=== PATIENT | male | born 1960 | race Caucasian/White ===

== ENCOUNTER 2019-07-30 18:23 | Inpatient (IN) | payer OTHER ==
[~2019-07-30] VITALS: Ht 182.9 cm; Wt 89.7 kg
[2019-07-30 18:56] LABS: VENOUS BASE EXCESS -4.1 (-2.0-2.0); VENOUS HCO3 19.9 MEQ/L (23.0-27.0); VENOUS O2 SATURATION 97.1 % (60.0-80.0); VENOUS PARTIAL PRESSURE CO2 33.7 mmHg (38.0-50.0); VENOUS PH 7.389 UNITS (7.330-7.430); VENOUS STANDARD HCO3 21.1 MEQ/L; VENOUS TOTAL CO2 20.9 MEQ/L (24.0-28.0)
[2019-07-30 19:03] LABS: BASO % 0.3 % (0.0-1.0); EOS % 0.1 % (0.0-3.0); HEMATOCRIT 44.2 % (42.0-52.0); HEMOGLOBIN 14.4 g/dl (13.5-17.5); LYMPH # 1.2 10^3/uL (1.5-5.0); LYMPH % 13.3 % (24.0-44.0); MEAN CORPUSCULAR HEMOGLOBIN 29.9 pg (27.0-33.0); MEAN CORPUSCULAR HGB CONC 32.6 g/dl (32.0-36.5); MEAN CORPUSCULAR VOLUME 91.7 fl (80.0-96.0); MONO # 0.7 10^3/uL (0.0-0.8); MONO % 7.7 % (0.0-5.0); NEUTROPHILS % 78.3 % (36.0-66.0); PLATELET COUNT, AUTOMATED 177 10^3/uL (150-450); RED BLOOD COUNT 4.82 10^6/uL (4.30-6.10); WHITE BLOOD COUNT 8.9 10^3/uL (4.0-10.0)
[2019-07-30] MEDS: METOPROLOL 5 MG/5 ML VIAL IV SCH ×3 (19:03→20:50)
--- NOTE | 2019-07-30 19:20 | REP ---
CHEST, SINGLE VIEW: Single view of the chest is performed. I have no prior study for comparison. There is cardiomegaly. There may be some mild patchy atelectasis or infiltrate in each lung base. There is blunting of the left costophrenic angle suggesting a small left pleural effusion. Mediastinal silhouette is unremarkable. IMPRESSION: Cardiomegaly. Possible mild bibasilar atelectasis/infiltrate. Possible small left effusion. Electronically Signed by Chidi Oliver MD 08/01/2019 09:08 A
[2019-07-30 19:21] LABS: INR 1.25; PROTHROMBIN TIME 15.4 SECONDS (11.8-14.0)
[2019-07-30 19:37] LABS: ALT/SGPT 85 U/L (12-78); BLOOD UREA NITROGEN 23 MG/DL (7-18); CARBON DIOXIDE LEVEL 21 MEQ/L (21-32); CHLORIDE LEVEL 106 MEQ/L (98-107); CPK CREATINE PHOSPHOKINASE 246 U/L (39-308); GLOMERULAR FILTRATION RATE > 60.0 (>49); GLUCOSE, FASTING 96 MG/DL (70-100); POTASSIUM SERUM 4.5 MEQ/L (3.5-5.1); SODIUM LEVEL 137 MEQ/L (136-145)
[2019-07-30 19:38] LABS: ALBUMIN 3.9 GM/DL (3.2-5.2); BILIRUBIN,DIRECT 0.6 MG/DL (0.0-0.2); BILIRUBIN,TOTAL 1.7 MG/DL (0.2-1.0); MB/CK RELATIVE INDEX 5.69 (< OR =4); NT-PRO BNP 1914 PG/ML (<125); TOTAL PROTEIN 6.7 GM/DL (6.4-8.2); TROPONIN I 0.03 NG/ML (< 0.10)
[2019-07-30] MEDS ORDERED: ISOVUE-370 76% 100ML VIAL (Q9967) As Ordered ONE (19:47)
--- NOTE | 2019-07-30 20:38 | REPVR ---
PROCEDURE INFORMATION: Exam: CT Angiography Chest With Contrast Exam date and time: 07/30/2019 7:51 PM Clinical history: 59 years old, male; Shortness of breath; Additional info: Chest pain, SOB TECHNIQUE: Imaging protocol: Computed tomographic angiography of the chest with intravenous contrast. 3D rendering: MIP reconstructed images were created and reviewed. Radiation optimization: All CT scans at this facility use at least one of these dose optimization techniques: automated exposure control; mA and/or kV adjustment per patient size (includes targeted exams where dose is matched to clinical indication); or iterative reconstruction. Contrast material: ISOVUE 370; Contrast volume: 75 ml; Contrast route: IV; COMPARISON: CR PORTABLE CHEST X-RAY 07/30/2019 6:53 PM FINDINGS: Pulmonary arteries: Normal. No pulmonary emboli. Aorta: Unremarkable. No aortic aneurysm. No aortic dissection. Lungs: Patchy groundglass opacities with some areas of interstitial thickening suggesting mild interstitial edema. No airspace consolidation or masses. Airways are clear. Pleural space: Small bilateral pleural effusions, larger on the right. No pneumothorax. Heart: Mild cardiomegaly with right greater than left cardiac enlargement. Lymph nodes: Unremarkable. No enlarged lymph nodes. Bones/joints: Unremarkable. No acute fracture. Soft tissues: Unremarkable. IMPRESSION: 1. Cardiomegaly with mild pulmonary edema and small bilateral pleural effusions. 2. No pulmonary embolism. Electronically signed by: Javi Calvillo On 07/30/2019 20:38:50 PM
--- NOTE | 2019-07-30 20:39 | REPVR ---
PROCEDURE INFORMATION: Exam: US Duplex Lower Extremity Veins Exam date and time: 07/30/2019 8:15 PM Clinical history: 59 years old, male; Pain; Leg, lower; Bilateral; Additional info: Edema, R/O dvt TECHNIQUE: Imaging protocol: Real-time duplex ultrasound of the Lower Extremities with 2-D love scale, color Doppler flow and spectral waveform analysis with image documentation. Complete exam focused on the bilateral lower extremity veins. COMPARISON: No relevant prior studies available. FINDINGS: Right deep veins: Unremarkable. The common femoral, femoral, proximal profunda femoral and popliteal veins are patent without thrombus. Normal Doppler waveforms. Normal compressibility and/or augmentation response. Right superficial veins: Saphenofemoral junction is patent without thrombus. Left deep veins: Unremarkable. The common femoral, femoral, proximal profunda femoral and popliteal veins are patent without thrombus. Normal Doppler waveforms. Normal compressibility and/or augmentation response. Left superficial veins: Saphenofemoral junction is patent without thrombus. Soft tissues: Unremarkable. IMPRESSION: No acute findings. No evidence of deep vein thrombosis. Electronically signed by: Javi Calvillo On 07/30/2019 20:39:40 PM
[2019-07-31] VITALS (13 sets, daily range): BP systolic 102–140; BP diastolic 70–88
[2019-07-31] MEDS ORDERED: FUROSEMIDE 40 MG TAB PO ONE (01:15)
--- NOTE | 2019-07-31 02:07 | HPEPDOC ---
[facility] [place] Medical History & Physical Date of Admission Jul 30, 2019 Date of Service: Jul 30, 2019 Attending Physician: PITER MON MD History and Physical CHIEF COMPLAINT: Shortness of breath HISTORY OF PRESENT ILLNESS: Jose is a 59-year-old male with past medical history of left lower extremity DVT who presented to the emergency department on the evening of 07/30 with the chief complaint of progressing shortness of breath that has been present for the past week. Patient initially presented to urgent care 1 week ago and was diagnosed with constipation. Patient's shortness of breath progressively worsened over the week and he subsequently returned to urgent care on 07/30. On second visit to urgent care, patient was found to be tachycardic and found to have new onset atrial fibrillation. He was then directed to the emergency department. Patient states that activity of any kind worsens his symptoms. He also is complaining of productive cough with clear sputum, headache running over sagittal suture, and belly fullness. Patient denies any recent illnesses, travel, sick contacts, or change in medications. Patient takes no prescribed medications and takes ecsu-lyf-rripafy multivitamin, fish oil, and glucosamine/chondroitin. Patient is in the process of trying to establish with a primary care physician and has not seen a primary provider in a long time. Patient verbally confirms when asked at time of admission that his CODE STATUS is full code. Patient was accompanied by his and [id number] at time of exam. In the emergency department, patient was given three, 5 mg doses of Lopressor, which brought his pulse from the 160s down to the mid 130s-mid 140s. LFTs, alk phos, and bilirubin were all elevated. BNP was significantly elevated. Electrolytes and CBC were unremarkable. Venous blood gas showed showed signs of a possibly mild metabolic acidosis. Portable chest x-ray showed cardiomegaly with possible mild atelectasis/infiltrate in both lung bases with possible left effusion. CTA of the chest also showed cardiomegaly with mild pulmonary edema and small bilateral pleural effusions. There were no signs of pulmonary embolism. Lower extremity ultrasound was unremarkable for DVT. Respiratory viral panel was negative and 2 blood cultures are pending. Patient was subsequently admitted to PCU under the care of the hospitalist team for rate control and continued telemetry monitoring. PAST MEDICAL HISTORY: History of left lower extremity DVT PAST SURGICAL HISTORY: None SOCIAL HISTORY: Marital status: , and has children Resides: At home with Employment: Patient is a mae Tobacco use: Denies ETOH: Averages about 1-2 beers per week Illicit drug use: Denies IV drug use: Denies FAMILY HISTORY: Mother: Diabetes mellitus Siblings: Myocardial infarction (younger brother; ) ALLERGIES: Please see below. REVIEW OF SYSTEMS: CONSTITUTIONAL: Denies fever, chills, night sweats, unintentional change in weight HEENT: Endorses headache over sagittal suture; denies feeling lightheaded, dizziness, dysphagia, odynophagia CARDIOVASCULAR: Denies chest pain, chest pressure, or palpitations at time of exam - - but did endorse right pectoral and flank, nonradiating, sharp pain early in the day that has since resolved RESPIRATORY: Endorses productive cough with clear sputum; Denies shortness of breath or pleuritic chest pain at time of exam GASTROINTESTINAL: Endorses bilateral belly fullness at the level of umbilicus; denies feeling nauseated, vomiting MUSCULOSKELETAL: Denies muscle or joint pain NEUROLOGICAL: Denies paresthesias ENDOCRINE: Denies heat or cold intolerance HOME MEDICATIONS: No home prescribed medications; takes qemv-[id number]-[id number] fish oil, multivitamin and glucosamine/chondroitin PHYSICAL EXAMINATION: VITAL SIGNS: Please see below GENERAL APPEARANCE: Jose is a pleasant and cooperative man who was resting in b ed at time of exam. He was receiving 1 L supplemental oxygen via nasal cannula and did not appear to be in any respiratory distress. He was speaking in full sentences. He was alert and oriented 3 and responding appropriately to questions and commands. HEENT: Normocephalic, atraumatic. Anicteric sclera. Pupils were equal, round, reactive to light and accommodation. Extraocular motion was intact. It was no pharyngeal erythema or exudate. Trachea was midline. Neck was supple. There was no palpable cervical or supraclavicular lymphadenopathy. CARDIOVASCULAR: Tachycardic with irregularly irregular rhythm. No rubs, gallops, or murmurs appreciated. Palpable bilateral radial and posterior tibial pulses. Adequate capillary refill. No JVD appreciated. LUNGS: Moderate crackles heard with respirations bilaterally. Note eat to a egophony appreciated. No tympany to percussion of bilateral lung borden. Adequate respiratory effort with symmetric chest expansion. There are no visible signs of accessory muscle use or retractions on respiration. Patient was receiving 1 L of supplemental oxygen via nasal cannula. ABDOMEN: Tenderness and pain to palpation of right upper quadrant and left upper quadrant. There was some left upper and mid abdominal quadrant belly fullness appreciated. Bowel sounds were present. There was no guarding or rigidity. No palpable masses or hepatosplenomegaly appreciated. MUSCULOSKELETAL: 5 out of 5 muscle strength testing of upper extremities and lower sternum is bilaterally EXTREMITIES: Bilateral lower extremity pitting edema. Left pedal edema. Palpable radial and posterior tibial pulses bilaterally. NEUROLOGICAL: Sensation to light touch intact of upper extremities and lower extremities bilaterally. Patient was awake, alert and oriented 3. He maintained good eye contact and respond appropriately to questions commands. PSYCHIATRIC: Appropriate mood, appropriate affect LABORATORY DATA: See below. IMAGIN/9, Portable chest x-ray Cardiomegaly. Possible mild bibasilar atelectasis/infiltrate. Possible small left effusion. 07/30, CTA of the chest Cardiomegaly with mild pulmonary edema and small bilateral pleural effusions. No pulmonary embolism. 07/30, vascular duplex lower extremity ultrasound No acute findings. No evidence of deep vein thrombosis. MICROBIOLOGY: Please see below. ASSESSMENT & PLAN: This is a 59-year-old male with only pertinent past medical history of previous left lower extremity DVT who presented to the emergency department with progressing shortness of breath for one week and was found to have new onset atrial fibrillation with rapid ventricular response. He was given three doses of Lopressor in the emergency department and found to have mild pulmonary edema on imaging. He was admitted to PCU under care of the hospitalist team for further medical management and rate control, as well as continued telemetry monitoring. #New onset atrial fibrillation with rapid ventricular response -Patient has been complaining of shortness of breath for a week, but did not endorse any lightheadedness, dizziness, syncope, chest pain, chest pressure, or palpitations at time of admission exam. -Patient received three, 5 mg Lopressor doses in the emergency department, which brought rate from the 160s down to the mid 130s to mid 140s. -Cardizem po 30mg q6h scheduled administration as patient remains hemodynamically stable. -Patient received one time IV Cardizem dose after arriving on the floor with heart rates staying in the 130s. -Heart rate controlled after IV Cardizem dose -Lovenox 90mg sc q12h ordered -TTE ordered to evaluate for associated cardiac conditions (cardiomyopathy, left atrial dilation, valvular heart disease) #Mild pulmonary edema and small bilateral pleural effusions on CTA chest -Patient had bilateral crackles on respiratory auscultation with elevated BNP -Signs of interstitial heart failure with mild pulmonary edema and small bilateral pleural effusions on imaging. -Patient given a dose of 40 mg Lasix -monitor I's & O's -Echocardiogram ordered for 07/31 #Direct hyperbilirubinemia -Patient had pain and tenderness to palpation of right and left upper abdominal quadrants. Patient was not jaundiced. -Continue to follow on repeat labs #Elevated alkaline phosphatase #DVT prophylaxis: 90 mg Lovenox sc q12h I saw and evaluated the patient, discussed with resident, agree with resident's findings and plan as documented in the resident's note Vital Signs Vital Signs Date Time Temp Pulse Resp B/P (MAP) Pulse Ox O2 Delivery O2 Flow Rate FiO2 07/31/19 00:30 137 156/99 (118) 99 07/30/19 20:21 20 Nasal Cannula 2.0 07/30/19 18:36 97.4 Laboratory Data Labs 24H Laboratory Tests 2 07/30/19 18:48: Immature Granulocyte % (Auto) 0.3, White Blood Count 8.9, Red Blood Count 4.82, Hemoglobin 14.4, Hematocrit 44.2, Mean Corpuscular Volume 91.7, Mean Corpuscular Hemoglobin 29.9, Mean Corpuscular Hemoglobin Concent 32.6, Red Cell Distribution Width 13.3, Platelet Count 177, Neutrophils (%) (Auto) 78.3H, Lymphocytes (%) (Auto) 13.3L, Monocytes (%) (Auto) 7.7H, Eosinophils (%) (Auto) 0.1, Basophils (%) (Auto) 0.3, Neutrophils # (Auto) 7.0, Lymphocytes # (Auto) 1.2L, Monocytes # (Auto) 0.7, Eosinophils # (Auto) 0.0, Basophils # (Auto) 0.0, Nucleated Red Blood Cells % (auto) 0.0, Prothrombin Time 15.4H, Prothromb Time International Ratio 1.25, Blood Gas Bicarbonate Standard 21.1, Venous Blood pH 7.389, Venous Blood Partial Pressure CO2 33.7L, Venous Blood Partial Pressure O2 91.0H, Venous Blood Total Carbon Dioxide 20.9L, Venous Blood HCO3 19.9L, Venous Blood Oxygen Saturation 97.1H, Venous Blood Base Excess -4.1L, Anion Gap 10, Glomerular Filtration Rate > 60.0, Calcium Level 9.0, Aspartate Amino Transf (AST/SGOT) 48H, Alanine Aminotransferase (ALT/SGPT) 85H, Alkaline Phosphatase 142H, Total Bilirubin 1.7H, Direct Bilirubin 0.6H, Total Creatine Kinase 246, Creatine Kinase MB 14.0H, Creatine Kinase MB Relative Index 5.69H, Troponin I 0.03, RH-Zfu-B-Type Natriuretic Peptide 1914H, Total Protein 6.7, Albumin 3.9, Albumin/Globulin Ratio 1.39, Thyroid Stimulating Hormone (TSH) 1.280 07/31/19 00:46: Activated Partial Thromboplast Time 31.2, Free Thyroxine 1.27 CBC/BMP Laboratory Tests 07/30/19 18:48 Red Blood Count 4.82, Mean Corpuscular Volume 91.7, Mean Corpuscular Hemoglobin 29.9, Mean Corpuscular Hemoglobin Concent 32.6, Red Cell Distribution Width 13.3, Neutrophils (%) (Auto) 78.3 H, Lymphocytes (%) (Auto) 13.3 L, Monocytes (%) (Auto) 7.7 H, Eosinophils (%) (Auto) 0.1, Basophils (%) (Auto) 0.3, Neutrophils # (Auto) 7.0, Lymphocytes # (Auto) 1.2 L, Monocytes # (Auto) 0.7, Eosinophils # (Auto) 0.0, Basophils # (Auto) 0.0 Microbiology Microbiology 07/30/19 Blood Culture, Received Pending 07/30/19 Respiratory Virus Panel (PCR) (JEFF) - Final, Complete 07/30/19 Blood Culture, Received Pending Home Medications No Active Prescriptions or Reported Meds Allergies Coded Allergies: No Known Drug Allergies (Verified Allergy, Unknown, 07/30/19) A-FIB/CHADSVASC A-FIB History Current/History of A-Fib/PAF?: Yes Current PO Anticoag Therapy: No (patient receiving subcutaneous Lovenox) DEJA HARLEY PGY-1 Jul 31, 2019 02:07 PITER MON MD Jul 31, 2019 18:40
[2019-07-31] MEDS: ENOXAPARIN 100MG/1ML SYRINGE (J1650) SC SCH ×3 (02:10→23:40)
[2019-07-31] MEDS ORDERED: SLF 3 ML SYR IV PRN (02:30)
[2019-07-31 05:29] LABS: HEMOGLOBIN 14.3 g/dl (13.5-17.5); MEAN CORPUSCULAR HEMOGLOBIN 30.2 pg (27.0-33.0); MEAN CORPUSCULAR HGB CONC 32.5 g/dl (32.0-36.5); MEAN CORPUSCULAR VOLUME 92.8 fl (80.0-96.0); PLATELET COUNT, AUTOMATED 162 10^3/uL (150-450); RED BLOOD COUNT 4.74 10^6/uL (4.30-6.10); WHITE BLOOD COUNT 8.3 10^3/uL (4.0-10.0)
[2019-07-31] MEDS: SLF 3 ML SYR IV SCH ×3 (05:46→20:12)
[2019-07-31 05:56] LABS: ALBUMIN 3.4 GM/DL (3.2-5.2); ALT/SGPT 71 U/L (12-78); BILIRUBIN,TOTAL 2.1 MG/DL (0.2-1.0); BLOOD UREA NITROGEN 21 MG/DL (7-18); CALCIUM LEVEL 8.5 MG/DL (8.8-10.2); CARBON DIOXIDE LEVEL 23 MEQ/L (21-32); CHLORIDE LEVEL 106 MEQ/L (98-107); CREATININE FOR GFR 0.81 MG/DL (0.70-1.30); GLOMERULAR FILTRATION RATE > 60.0 (>49); GLUCOSE, FASTING 100 MG/DL (70-100); MAGNESIUM LEVEL 1.8 MG/DL (1.8-2.4); PHOSPHORUS LEVEL 3.2 MG/DL (2.5-4.9); POTASSIUM SERUM 3.8 MEQ/L (3.5-5.1); SODIUM LEVEL 137 MEQ/L (136-145); TOTAL PROTEIN 6.2 GM/DL (6.4-8.2)
--- NOTE | 2019-07-31 10:52 | ECGEPIP ---
[facility] - ED Test Date: 2019-07-30 Pat Name: MARCELA MARX Department: Room: [place] [address] Gender: Male Survey Engineer: yonis : 1960 Requested By: Gwendolyn Talamantes Order Number: [id number] Reading MD: Gwendolyn Talamantes Measurements Intervals [place] Rate: 160 P: MO: 0 QRS: -3 QRSD: 100 T: 29 QT: 294 QTc: 480 Interpretive Statements ATRIAL FIBRILLATION WITH RAPID VENTRICULAR RESPONSE ABNORMAL RHYTHM ECG NSTTW abnormalities NO PRIOR Electronically Signed on 07-31-2019 10:52:32 EDT by Gwendolyn Talamantes
[2019-07-31] MEDS: METOPROLOL TART 25 MG TABLET PO SCH ×2 (12:03→20:11)
[2019-07-31] MEDS: FUROSEMIDE 40 MG/4 ML VIAL (J1940) IV SCH ×2 (12:04→17:48)
[2019-07-31] MEDS: LISINOPRIL 10 MG TAB PO SCH (12:04)
[2019-07-31] MEDS ORDERED: diltiaZEM 125 MG in NS 100 ML IV SCH ×3 (14:30→19:45)
[2019-07-31] MEDS: diltiaZEM 125 MG in NS 100 ML IV SCH (18:58)
--- NOTE | 2019-07-31 20:11 | IPNPDOC ---
Text Note Date of Service The patient was seen on 07/31/19. NOTE SUBJECTIVE: Mr. Rincon was admitted for new onset atrial fibrillation with rapid ventricular response. He has had difficulty with rate control over the course of the day. Patient has also exhibited elements of congestive heart failure; he reports having had significant lower extremity edema and at times worsening activity tolerance. OBJECTIVE: Please see vital signs below Physical exam: HENT: Neck is supple with no adenopathy or thyromegaly, oral mucosa is moist. Cardiovascular exam shows an accelerated irregular rate and rhythm with a normal S1 and S2 and no appreciable murmur or bruit. Respiratory: Patient has diminished breath sounds to the left base. He has rare rales Abdomen: Soft, nontender, nondistended, bowel tones present. Extremities: Patient does Exhibit 1-2+ pitting edema to the feet and legs with mild tenderness to palpation, pedal pulses are otherwise palpable. Neuro: No focal neuromotor or sensory deficit ASSESSMENT/PLAN: 1. Atrial fibrillation with rapid ventricular response. This appears to be of new onset. Patient had brief response to IV Cardizem. He is on minimal response to oral beta collette and poor response to oral Cardizem. Patient is being transitioned back to IV Cardizem drip. If he does not respond to this we may need to put him on amiodarone for rate control. The patient is on anticoagulation with treatment dose Lovenox for now. We are also awaiting echocardiogram results. 2. Possible congestive heart failure. Patient reports having had worsening lower extremity edema and episodes of activity intolerance. Concern is raised for onset of congestive heart failure as well. Chest x-ray shows cardiomegaly and small left pleural effusion. Patient has been placed on empiric therapy inclusive of beta collette, lisinopril and diuretic. Echocardiogram results will determine further management. VS,Fishbone, I+O VS, Fishbone, I+O Laboratory Tests 07/31/19 04:52 Red Blood Count 4.74, Mean Corpuscular Volume 92.8, Mean Corpuscular Hemoglobin 30.2, Mean Corpuscular Hemoglobin Concent 32.5, Red Cell Distribution Width 13.5, Calcium Level 8.5 L, Phosphorus Level 3.2, Aspartate Amino Transf (AST/SGOT) 50 H, Alanine Aminotransferase (ALT/SGPT) 71, Alkaline Phosphatase 111, Total Bilirubin 2.1 H, Total Protein 6.2 L, Albumin 3.4 Vital Signs Date Time Temp Pulse Resp B/P (MAP) Pulse Ox O2 Delivery O2 Flow Rate FiO2 07/31/19 18:58 148 118/72 (87) 07/31/19 17:48 95 07/31/19 16:00 98.5 18 2.0 07/30/19 20:21 Nasal Cannula I&O- Last 24 Hours up to 6 AM 07/31/19 06:00 Intake Total 355 ml Output Total 1700 ml Balance -1345 ml HUNTER AMAYA MD Jul 31, 2019 20:11
[2019-08-01] VITALS (14 sets, daily range): BP systolic 98–123; BP diastolic 60–83
[2019-08-01] MEDS: SLF 3 ML SYR IV SCH ×3 (04:58→21:18)
[2019-08-01] MEDS: diltiaZEM 125 MG in NS 100 ML IV SCH ×2 (05:04→21:17)
[2019-08-01 05:23] LABS: ALBUMIN 3.3 GM/DL (3.2-5.2); ALT/SGPT 62 U/L (12-78); BILIRUBIN,TOTAL 1.1 MG/DL (0.2-1.0); BLOOD UREA NITROGEN 24 MG/DL (7-18); CALCIUM LEVEL 8.4 MG/DL (8.8-10.2); CARBON DIOXIDE LEVEL 30 MEQ/L (21-32); CHLORIDE LEVEL 106 MEQ/L (98-107); CREATININE FOR GFR 1.03 MG/DL (0.70-1.30); GLOMERULAR FILTRATION RATE > 60.0 (>49); GLUCOSE, FASTING 93 MG/DL (70-100); POTASSIUM SERUM 3.7 MEQ/L (3.5-5.1); SODIUM LEVEL 143 MEQ/L (136-145)
--- NOTE | 2019-08-01 07:15 | ECHO ---
DATE OF STUDY: 07/31/2019 REFERRING PHYSICIAN: Dr. Caputo INDICATION: Cardiac dysrhythmia, congestive heart failure. HEIGHT: 183 cm. WEIGHT: 96 kg. DIMENSIONS: IVS: 1.3 LV: 4.7 LVPW: 1.2 LA: 4.8 Aorta: 3.5 IVC: 3.2 FINDINGS: The study is of good technical quality. The patient is in atrial fibrillation with predominantly rapid ventricular response. Left ventricle is of normal size. There is severe global hypokinesis, I estimate left ventricle ejection fraction (LVEF) around 20-25%. Mild left ventricular hypertrophy (LVH) is noted. Right ventricle is dilated and hypokinetic. Both atria are severely enlarged. All four cardiac valves appear reasonably normal. No pericardial effusion is noted. Inferior vena cava is markedly dilated and has no appreciable collapse with respiration indicative of high central venous pressure. Aortic root is normal. Aortic arch and abdominal aorta also appear grossly normal. Doppler interrogation of aortic valve reveals no stenosis or insufficiency. There is approximately moderate mitral insufficiency with central MR jet indicative likely of functional mitral insufficiency due to underlying left ventricular systolic dysfunction. There is mild tricuspid insufficiency. Calculated pulmonary artery pressure is at minimum around 40 mmHg corresponding to moderate pulmonary hypertension. Trace pulmonic insufficiency is seen. Evaluation of diastolic function is inconclusive due to underlying atrial fibrillation. CONCLUSIONS: 1. Study is of good technical quality. 2. Normal LV size with severe global hypokinesis and estimated EF around 20-25%. 3. Dilated hypokinetic right ventricle. 4. Severe biatrial enlargement. 5. Approximately moderate mitral insufficiency likely secondary to LV dysfunction. 6. Very high central venous pressure. 7. At least moderate pulmonary hypertension. COMMENT: Subacute bacterial endocarditis (SBE) prophylaxis is not recommended. 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
[2019-08-01] MEDS: FUROSEMIDE 40 MG/4 ML VIAL (J1940) IV SCH ×2 (10:23→17:00)
[2019-08-01] MEDS: LISINOPRIL 10 MG TAB PO SCH (10:23)
[2019-08-01] MEDS: METOPROLOL TART 25 MG TABLET PO SCH (10:23)
[2019-08-01] MEDS: ENOXAPARIN 100MG/1ML SYRINGE (J1650) SC SCH ×2 (12:27→23:33)
--- NOTE | 2019-08-01 16:08 | IPNPDOC ---
Text Note Date of Service The patient was seen on 08/01/19. NOTE SUBJECTIVE: Mr. Rinocn continues to feel better daily. He notes improved breathing and steadily decreasing lower extremity edema. He otherwise does not have any chest pain. Patient was admitted with atrial fibrillation with rapid ventricular response with additional concern of congestive heart failure. OBJECTIVE: Please see vital signs below--patient had had difficulty overnight with rate control and so was placed on a Cardizem drip Physical exam: HENT: Neck is supple with no adenopathy or thyromegaly, oral mucosa is moist. Cardiovascular: accelerated irregular rate and rhythm has improved with being on a Cardizem drip Respiratory: Patient has diminished breath sounds to the left base. He has rare rales Abdomen: Soft, nontender, nondistended, bowel tones present. Extremities: Patient does exhibit 1-2+ pitting edema to the feet and legs with mild tenderness to palpation, pedal pulses are otherwise palpable. Neuro: No focal neuromotor or sensory deficit ASSESSMENT/PLAN: 1. Atrial fibrillation with rapid ventricular response. This is of new onset. Patient had been most responsive to IV Cardizem and so was placed on a drip overnight. Ideally would like to transition the patient over to oral agent for rate control. We are attempting to transition him to beta collette in the form of metoprolol. We will need to perhaps tolerate a lower blood pressu re range for this. Additionally, the patient is on anticoagulation with Lovenox, but will need to transition to an oral agent as well. 2. Acute systolic congestive heart failure. The patient had had worsening lower extremity edema and episodes of activity intolerance. Echocardiogram shows ejection fraction of 20-25%. It also notes biatrial enlargement and pulmonary arterial pressures of 40 mmHg. Patient had already been placed on an initial treatment regimen inclusive of beta collette, LIZZETTE inhibitor and diuretic. This regimen will need to be optimized once the patient's heart rate is controlled. Other eventual interventions may include stress testing of some type and discussion of possible AICD placement. We will defer to the cardiology service on those issues; we appreciate their assistance and input. Steve BUSTAMANTE, I+O VS, Steve, I+O Laboratory Tests 08/01/19 04:48 Calcium Level 8.4 L, Aspartate Amino Transf (AST/SGOT) 30, Alanine Amino transferase (ALT/SGPT) 62, Alkaline Phosphatase 120 H, Total Bilirubin 1.1 H, Total Protein 6.0 L, Albumin 3.3 Vital Signs Date Time Temp Pulse Resp B/P (MAP) Pulse Ox O2 Delivery O2 Flow Rate FiO2 08/01/19 15:00 105 106/76 (86) 08/01/19 12:00 98.3 18 94 07/31/19 16:00 2.0 07/30/19 20:21 Nasal Cannula I&O- Last 24 Hours up to 6 AM 08/01/19 06:00 Intake Total 1620 ml Output Total 3525 ml Balance -1905 ml HUNTER AMAYA MD Aug 01, 2019 16:08
[2019-08-01] MEDS: DIGOXIN INJ 0.5 MG/2 ML AMP (J1160) IV SCH (19:52)
[2019-08-01] MEDS: METOPROLOL TART 50 MG TAB PO SCH (21:18)
[2019-08-02] VITALS: BP 122/60
[2019-08-02] MEDS: DIGOXIN INJ 0.5 MG/2 ML AMP (J1160) IV SCH ×3 (01:28→12:28)
[2019-08-02 04:00] VITALS: BP 120/54
[2019-08-02] MEDS: ACETAMINOPHEN TAB 650MG DOSE (2X325MG) PO PRN ×2 (04:49→15:00)
[2019-08-02] MEDS: SLF 3 ML SYR IV SCH ×3 (05:21→21:37)
[2019-08-02 06:05] LABS: BLOOD UREA NITROGEN 19 MG/DL (7-18); CALCIUM LEVEL 8.7 MG/DL (8.8-10.2); CARBON DIOXIDE LEVEL 27 MEQ/L (21-32); CHLORIDE LEVEL 103 MEQ/L (98-107); CREATININE FOR GFR 0.81 MG/DL (0.70-1.30); GLOMERULAR FILTRATION RATE > 60.0 (>49); GLUCOSE, FASTING 91 MG/DL (70-100); SODIUM LEVEL 137 MEQ/L (136-145)
[2019-08-02 08:00] VITALS: BP 138/74
--- NOTE | 2019-08-02 08:23 | REPVR ---
PROCEDURE INFORMATION: Exam: US Duplex Left Lower Extremity Veins, Limited Exam date and time: 08/02/2019 7:09 AM Clinical history: 59 years old, male; Pain; Leg, lower; Left; Additional info: Acutely swollen lt knee w/ h/o lle dvt 15 yr ago TECHNIQUE: Imaging protocol: Real-time Duplex ultrasound of the Left Lower Extremity with 2-D love scale, color Doppler flow and spectral waveform analysis with image documentation. Limited exam focused on the left lower extremity veins. COMPARISON: US PV-Ruperto 07/30/2019 8:06 PM FINDINGS: Left deep veins: Unremarkable. The common femoral, femoral, proximal profunda femoral, popliteal and posterior tibial veins are patent without thrombus. Normal Doppler waveforms. Normal compressibility and/or augmentation response. Left superficial veins: Unremarkable. Saphenofemoral junction is patent without thrombus. Soft tissues: Unremarkable. IMPRESSION: No acute findings. No evidence of deep vein thrombosis. Electronically signed by: Finn Panda On 08/02/2019 08:23:26 AM
--- NOTE | 2019-08-02 08:27 | CR ---
DATE OF CONSULTATION: 08/01/2019 REFERRING PROVIDER: Ruby Rhodes MD REASON FOR THE CONSULTATION: Atrial fibrillation, heart failure. A 59-year-old male with no history of hypertension, diabetes mellitus, valvular heart disease, cardiomyopathy, or coronary artery disease came to the hospital, transferred directly by emergency medical services (EMS) from one of the urgent care centers because he was found to be tachycardiac, in atrial fibrillation with a rapid ventricular rate. In the emergency room, he was found to have findings consistent with congestive heart failure and admitted for further management and monitoring. He had deep venous thrombosis (DVT) of his lower extremity because of edema, and it was negative. Respiratory viral also was negative, and blood pressure was done. A CT of the chest was done and showed cardiomegaly but no pulmonary embolism. There were manifestation of heart failure and pleural effusion. His pro-BNP was elevated, as well as his liver function tests (LFTs) on further workup. An echocardiogram revealed a left ventricular ejection fraction (LVEF) estimated at 20% to 25%. He had been on intravenous (IV) Cardizem, by mouth beta collette, and his atrial fibrillation is still uncontrolled. Cardiology consult was called. When I saw Mr. Jose Rincon this evening, he was sitting up in his bed in akinesis at rest, and his as well as his son and his future [id number] were at bedside. He stated he feels better, and he feels improved significantly as far as his cough. It seemed that he started getting sick since the spring with shortness of breath with activities on and off with rest. He also has described intermittent fluttering in his chest on and off, and he thought that was related to anxiety. He has no chest pain. It does not seem that he was having any orthopnea or paroxysmal nocturnal dyspnea (PND). He has no focal manifestation. On his first trip to a local urgent care center, he was given a treatment for constipation because he was complaining of bloating, but as mentioned above, when he came back because he was not getting better, he was found to be in atrial fibrillation with a rapid ventricular rate and was transferred to the emergency room (ER) by EMS. As mentioned above, he denies any prior history of hypertension, hyperlipidemia, diabetes mellitus, significant valvular heart disease, prior history of cardiomyopathy, coronary disease, cerebrovascular accident (CVA)/transient ischemic attack (TIA). He works in construction and years ago, his working situation was he has to mobilize his lower extremities, he was diagnosed with a DVT and was on Coumadin for about 2-3 months, then discontinued. Since then, there has not been any recurrence. PAST SURGICAL HISTORY: Unremarkable. FAMILY HISTORY: Is positive for heart disease. He has a brother who from a coronary event in his 50s. SOCIAL HISTORY: The patient lives with his and very active and has not been sick for a long time since that DVT involving his left lower extremity. He is still working in construction. He does not smoke or abuse alcohol. There is no history of illicit drugs. ALLERGIES: No known drug allergies. The patient is a FULL CODE. CURRENT MEDICATIONS: - lisinopril 5 mg by mouth daily - metoprolol tartrate 50 mg by mouth twice a day - diltiazem IV 5 mg/h - Lasix 40 mg IV twice a day - Lovenox 90 mg every 12 hours On physical examination, the patient is alert and oriented, in akinesis at rest, and his vital signs when I saw him revealed a blood pressure of 110/70 with a pulse of 102, respiration 18, and his maximum temperature was 98.4 degrees Fahrenheit with an oxygen saturation of 96% on room air. He has a negative fluid balance of 1.4 liters so far today and yesterday, 07/31/2019, it was 2.9 liters. His weight on admission was 96.2 kg and today 93.8 kg. Examination of the head is normocephalic, atraumatic. Neck is supple with extended jugular. Lungs: Revealed crackles at the bases. There is some component of dry crackles also noted. The heart examination revealed irregular heart sounds without gallops. The point of maximal impulse (PMI) is displaced inferiorly and laterally. There is no rub. There is a systolic murmur grade 2/6 at the lower left sternal border to the axilla. Abdomen is unremarkable. Soft. Bowel sounds are active. Extremities reveal +1 bilateral lower leg and local edema. Neurological examination: Grossly is negative for focal deficit. LABORATORIES: Complete blood count (CBC) done today revealed WBC of 8.3, hemoglobin 14.3, hematocrit 44.0, and platelets 162,000. Basic metabolic profile (BMP) done today revealed a sodium of 143, potassium 3.7, chloride 106, CO2 30, BUN 24, creatinine 1.03, GFR more than 60, fasting glucose 93, calcium 8.4. BMP done today revealed a total bilirubin of 1.1 AST 30, ALT 62, alkaline phosphatase 120, total protein 6.0, albumin 3.3. On admission, liver enzymes revealed a total bilirubin of 1.7, direct bilirubin 0.6, AST 48, ALT 85, alkaline phosphatase 142, total protein 6.7, albumin 3.9. Serum pro-BNP on admission was 1914. Serum troponin was 0.03. PT on admission was 15.4 with an INR of 1.25. Chest x-ray on admission 07/30/2019 revealed cardiomegaly and possible mild bibasilar atelectasis/infiltrate and small left pleural effusion. Doppler of the lower extremities revealed no evidence of DVT. CT of the chest on admission 07/30/2019 revealed cardiomegaly with mild pulmonary edema and small bilateral pleural effusion. No pulmonary embolism. Electrocardiogram (EKG) in the ER on admission 07/30/2019 revealed atrial fibrillation at 160 beats per minute and nonspecific ST-T abnormalities, right ventricular conduction delay. Echocardiogram done on 07/31/2019 revealed an LVEF estimated at 25% with severe global hypokinesis, dilated hypokinetic right ventricle, severe biatrial enlargement, moderate mitral regurgitation, and at least moderate pulmonary hypertension. There were findings consistent with elevated central venous pressure. IMPRESSION: 1. Atrial fibrillation, newly diagnosed and still uncontrolled ventricular rate, but this has improved significantly. 2. Cardiomyopathy, severe and also newly diagnosed with acute decompensated heart failure. 3. Valvular heart disease involving the mitral valve and probably related to his underlying cardiomyopathy; it was reported as moderate. 4. Elevated blood pressure, probably related to underlying and prior undiagnosed hypertension. 5. Abnormal liver function tests, improved and most likely related to congestive cardiomyopathy. The case was discussed this morning with the patient's hospitalist, and the plan is to taper off the Cardizem and increase his beta collette. We are decreasing his lisinopril to prevent hypotension. This afternoon when I saw him, his heart rate was still not quite under control, and he will be loaded with digoxin. I have discussed with him, as well as his and his son, about his diagnosis, and I have recommended a cardiac catheterization for further evaluation; he is in agreement. Will try to arrange that for him for this coming Sunday. If he is discharged from this hospital to so home, he will need a LifeVest for primary prevention of sudden cardiac . If he goes to [facility], he can be seen by , then further recommendation will be given. In the meantime, will continue with current management with beta collette, digoxin, angiotensin-converting enzyme (LIZZETTE) inhibitor; and if his blood pressure allows it, he will be started on spirolactone. Will continue with the diuretics. Will monitor his BUN, creatinine, and serum potassium because he will need a cardiac catheterization. It was a pleasure to participate in the care of Mr. Jose Rincon for his underlying cardiac condition. I will continue to monitor him along with you over the weekend. I will arrange his transfer for the cardiac catheterization for him. Please do not hesitate to call if any questions.
[2019-08-02] MEDS: FUROSEMIDE 40 MG/4 ML VIAL (J1940) IV SCH ×2 (09:24→17:24)
[2019-08-02] MEDS: METOPROLOL TART 50 MG TAB PO SCH ×3 (09:24→21:36)
[2019-08-02] MEDS: LISINOPRIL 5 MG TAB PO SCH (09:25)
--- NOTE | 2019-08-02 09:38 | REP ---
REASON: Pain and swelling. PRIORS: None. There is tricompartmental marginal osteophytosis. Subtle calcifications are seen both medial and lateral compartments. There is advanced patellofemoral joint space narrowing. There is lateral subluxation of the patella. There is no evidence of an acute fracture. IMPRESSION: Chronic changes as described above. Electronically Signed by Fidel Arreola DO 08/02/2019 09:44 A
[2019-08-02 10:14] LABS: C REACTIVE PROTEIN QUANTITATIV 0.53 MG/DL (0.00-0.30)
[2019-08-02] MEDS ORDERED: AMIODARONE HCL 150 MG in IV 1 EA IV STA (10:16)
[2019-08-02 12:00] VITALS: BP 122/76
[2019-08-02] MEDS: ENOXAPARIN 100MG/1ML SYRINGE (J1650) SC SCH ×2 (12:05→23:36)
[2019-08-02 13:07] LABS: URIC ACID 9.2 MG/DL (3.5-7.2)
[2019-08-02] MEDS: DOCUSATE SODIUM 100 MG CAP PO SCH ×2 (15:09→21:35)
[2019-08-02] MEDS: SENNA 8.6 MG TAB (SENOKOT) PO SCH ×2 (15:09→21:35)
[2019-08-02 16:00] VITALS: BP 128/74
[2019-08-02] MEDS ORDERED: oxyCODONE 5MG TAB PO PRN (17:45)
--- NOTE | 2019-08-02 17:50 | IPNPDOC ---
Text Note Date of Service The patient was seen on 08/02/19. NOTE SUBJECTIVE: Patient continues not to have chest pain and not much shortness of breath. Patient is admitted with atrial fibrillation with rapid ventricular response, new onset. He also has new finding of fairly significant acute on chronic systolic congestive heart failure. OBJECTIVE: Please see vital signs below Physical exam: HENT: Neck is supple with no adenopathy or thyromegaly, oral mucosa is moist. Cardiovascular: accelerated irregular rate and rhythm Respiratory: Patient has diminished breath sounds to the left base. He has rare rales Abdomen: Soft, nontender, nondistended, bowel tones present. Extremities: Patient does exhibit 1+ pitting edema to the feet and legs with mild tenderness to palpation, pedal pulses are otherwise palpable, He has now developed acute swelling to the left knee. There is no remarkable erythema, but the site is tender with ballotable fluid Neuro: No focal neuromotor or sensory deficit ASSESSMENT/PLAN: 1. Atrial fibrillation with rapid ventricular response. This is of new onset. Patient had been most responsive to IV Cardizem and so was placed on a drip overnight. Ideally would like to transition the patient over to oral agent/agents for rate control. We are attempting to transition him to beta collette in the form of metoprolol. We will need to perhaps tolerate a lower blood pressure range for this. Digoxin has been added with mild improvement in rate control and now amiodarone has been added as well. We appreciate the assistance of the cardiology service. Additionally, the patient is on anticoagulation with Lovenox, but will need to transition to an oral agent as well. 2. Acute systolic congestive heart failure. The patient had had worsening lower extremity edema and episodes of activity intolerance. Echocardiogram shows ejection fraction of 20-25%. It also notes biatrial enlargement and pulmonary arterial pressures of 40 mmHg. Patient had already been placed on an initial treatment regimen inclusive of beta collette, LIZZETTE inhibitor and diuretic. This regimen will need to be optimized once the pa tient's heart rate is controlled. Other eventual interventions may include stress testing of some type, coronary angiogram, LifeVest and discussion of possible AICD placement. We will defer to the cardiology service on those issues; we appreciate their assistance and input. 3. Left knee joint. The patient has developed acute swelling and pain to his left knee. There is no erythema or induration. The patient has a large effusion with ballotable fluid. He has not had fever and does not have leukocytosis Inflammatory indicators are remarkably negative. Sedimentation rate is 3. Patient does have elevated uric acid of 9, but this is not diagnostic. Plans are to contact the orthopedic service for arthrocentesis. VS,Fishbone, I+O VS, Fishbone, I+O Laboratory Tests 08/02/19 05:18 Calcium Level 8.7 L Vital Signs Date Time Temp Pulse Resp B/P (MAP) Pulse Ox O2 Delivery O2 Flow Rate FiO2 08/02/19 16:00 99.8 98 18 128/74 (92) 98 07/31/19 16:00 2.0 07/30/19 20:21 Nasal Cannula I&O- Last 24 Hours up to 6 AM 08/02/19 06:00 Intake Total 2567.5 ml Output Total 3700 ml Balance -1132.5 ml HUNTER AMAYA MD Aug 02, 2019 17:50
[2019-08-02 20:00] VITALS: BP 119/75
[2019-08-02] MEDS ORDERED: INDOMETHACIN 25 MG CAP PO ONE (21:00)
[2019-08-03] VITALS (7 sets, daily range): BP systolic 106–136; BP diastolic 55–93
[2019-08-03 05:36] LABS: HEMOGLOBIN 15.5 g/dl (13.5-17.5); MEAN CORPUSCULAR VOLUME 91.1 fl (80.0-96.0); PLATELET COUNT, AUTOMATED 185 10^3/uL (150-450); RED BLOOD COUNT 5.16 10^6/uL (4.30-6.10); WHITE BLOOD COUNT 10.8 10^3/uL (4.0-10.0)
[2019-08-03] MEDS: METOPROLOL TART 50 MG TAB PO SCH ×3 (06:11→21:07)
[2019-08-03] MEDS: SLF 3 ML SYR IV SCH ×3 (06:11→21:08)
[2019-08-03] MEDS: SENNA 8.6 MG TAB (SENOKOT) PO SCH ×2 (09:05→21:07)
[2019-08-03] MEDS: LISINOPRIL 5 MG TAB PO SCH (09:05)
[2019-08-03] MEDS: FUROSEMIDE 40 MG/4 ML VIAL (J1940) IV SCH ×2 (09:05→17:13)
[2019-08-03] MEDS: DOCUSATE SODIUM 100 MG CAP PO SCH ×2 (09:05→21:07)
[2019-08-03] MEDS: ENOXAPARIN 100MG/1ML SYRINGE (J1650) SC SCH ×2 (11:39→23:39)
[2019-08-03] MEDS: DIGOXIN INJ 0.5 MG/2 ML AMP (J1160) IV SCH (12:43)
[2019-08-03] MEDS: INDOMETHACIN 25 MG CAP PO SCH ×2 (13:22→21:07)
[2019-08-03] MEDS: ALLOPURINOL 100 MG TAB PO SCH (13:22)
--- NOTE | 2019-08-03 13:26 | IPN ---
DATE OF SERVICE: 08/03/2019 AGE: 59. Mr. Jose Rincon was seen earlier this morning. He was sitting in a chair in no acute distress at rest. He denies any chest pain, and there is no orthopnea or paroxysmal nocturnal dyspnea (PND). He stated that he thinks his heart rate is now slower. He denies any bleeding. There is no focal manifestation. There is no nausea, vomiting, diarrhea, melena, or hematemesis. He continues to have pain in his left knee, and he was found to have an elevated uric acid up to 9.2. He was evaluated by orthopedics this morning, and treatment for that was recommended, and the case was discussed with his hospitalist. They are not planning to do any diagnostic tap. On physical examination, the patient is alert and oriented, in no acute distress at rest, and his blood pressure this morning was 119/78 with a pulse reported to be 96, but at the time of this dictation on telemetry, it was about 112 beats per minute. Respiration 18, and his maximum temperature is 98 degrees Fahrenheit with an oxygen saturation of 96% on room air. He has a negative fluid balance of 2.5 liters for 08/02/2019. Examination of the head: Atraumatic. Neck is supple, and no jugular venous distention (JVD) appreciated today. The lungs revealed clear breath sounds without any wheezing or crackles. The heart examination revealed an irregular heart sound without gallops. The point of maximal impulse (PMI) is displaced inferiorly and laterally. There is no rub. Abdomen is soft and nontender. Abdomen is unremarkable. Extremities: Revealed trace to +1 lower leg edema, more on the left lower extremity than the right. Neurological examination: Is negative for focal deficit. LABORATORIES: Complete blood count (CBC) done today revealed WBC of 10.8, hemoglobin 15.5, hematocrit 47.0, and platelet 185,000. IMPRESSION: 1. Status post decompensated congestive heart failure, newly diagnosed with a markedly depressed global left ventricular systolic function. 2. Atrial fibrillation, also newly diagnosed. 3. Left knee pain and elevated uric acid. Presumed gout, and this is being addressed. Mr. Jose Rincon seems to be stable from a cardiac point of view, and his heart failure and atrial fibrillation has improved significantly. His heart rate is not quite under control for now, and I assume that the gouty attack is probably completing to that. He was loaded with digoxin and will continue the same with daily dose. Will continue the current dose of the beta collette. He is also on angiotensin-converting enzyme (LIZZETTE) inhibitor and diuretics. If his blood pressure remains stable, we can try to add a small dose of spirolactone. I would like him to proceed with a cardiac catheterization. He is in agreement, in [place], [place]. The case was discussed earlier today with his hospitalist. If he does not go for the cardiac catheterization, he might need a LifeVest to go home. It was a pleasure to participate the care of . Jose Rincon for his underlying cardiac condition. I will continue to follow him while in the hospital and upon discharge. Tomorrow, I will ask Dr. Damon to see him in followup.
--- NOTE | 2019-08-03 18:13 | IPNPDOC ---
Text Note Date of Service The patient was seen on 08/03/19. NOTE SUBJECTIVE: Patient is awake, alert and conversant. He tolerates ambulation in his room and being up in a chair. Patient was admitted with new onset atrial fibrillation and is found to have significant chronic systolic congestive heart failure. He has not had chest pain and does not have remarkable shortness of breath. Has developed pain to his left knee with significant swelling. The pain is decreasing. OBJECTIVE: Please see vital signs below Physical exam: HENT: Neck is supple with no adenopathy or thyromegaly, oral mucosa is moist. Cardiovascular: accelerated irregular rate and rhythm Respiratory: Patient has diminished breath sounds to the left base. He has rare rales Abdomen: Soft, nontender, nondistended, bowel tones present. Extremities: Patient does exhibit 1+ pitting edema to the feet and legs with mild tenderness to palpation, pedal pulses are otherwise palpable, The patient developed acute swelling to the left knee. There is no remarkable erythema, but the site is tender with ballotable fluid. Neuro: No focal neuromotor or sensory deficit ASSESSMENT/PLAN: 1. Atrial fibrillation with rapid ventricular response. This is of new onset. Patient had been most responsive to IV Cardizem. He has been successfully transitioned over to oral agent/agents for rate control; these include digoxin and metoprolol. We appreciate the assistance of the cardiology service. Additionally, the patient is on anticoagulation with Lovenox, but will need to transition to an oral agent as well. 2. Acute systolic congestive heart failure. The patient had had worsening lower extremity edema and episodes of activity intolerance. Echocardiogram shows ejection fraction of 20-25%. It also notes biatrial enlargement and pulmonary arterial pressures of 40 mmHg. Patient had already been placed on an initial treatment regimen inclusive of beta collette, LIZZETTE inhibitor and diuretic. This regimen will need to be optimized once the patient's heart rate is controlled. Other interventions may include coronary angiogram, LifeVest and discussion of possible AICD placement--all discussed with the cardiology service and with patient who is agreeable. 3. Left knee joint. The patient has developed acute swelling and pain to his left knee. There is no erythema or induration. The patient has a large effusion with ballotable fluid. He has not had fever and does not have leukocytosis Inflammatory indicators are remarkably negative. Sedimentation rate is 3. Patient does have elevated uric acid of 9, but this is not diagnostic. Case has been discussed with the orthopedic service who recommends empiric treatment for gout. Patient has been placed on allopurinol and indomethacin. VS,Fishbone, I+O VS, Fishbone, I+O Laboratory Tests 08/03/19 05:10 Red Blood Count 5.16, Mean Corpuscular Volume 91.1, Mean Corpuscular Hemoglobin 30.0, Mean Corpuscular Hemoglobin Concent 33.0, Red Cell Distribution Width 13.3 Vital Signs Date Time Temp Pulse Resp B/P (MAP) Pulse Ox O2 Delivery O2 Flow Rate FiO2 08/03/19 17:20 120/85 (97) 08/03/19 16:00 97.3 95 19 92 07/31/19 16:00 2.0 07/30/19 20:21 Nasal Cannula I&O- Last 24 Hours up to 6 AM 08/03/19 06:00 Intake Total 2572.5 ml Output Total 5250 ml Balance -2677.5 ml HUNTER AMAYA MD Aug 03, 2019 18:13
[2019-08-04] VITALS: BP 126/70
[2019-08-04 04:00] VITALS: BP 110/72
[2019-08-04] MEDS: METOPROLOL TART 50 MG TAB PO SCH (05:35)
[2019-08-04] MEDS: SLF 3 ML SYR IV SCH ×3 (05:35→20:35)
[2019-08-04 08:00] VITALS: BP 134/91
--- NOTE | 2019-08-04 08:05 | IPN ---
DATE: 08/04/2019 Mr. Rincon tells me that he is feeling much better. He has not done much ambulation, but does not have any resting symptoms. He does not have any sensation of palpitations. VITAL SIGNS: Blood pressure 120/82, heart rate has been in 100 to 100-teens, atrial fibrillation. No bradycardic episodes. Saturation 96% on room air. Fluid balance yesterday was recorded as 400 positive, weight is 90.6 kg. He is alert and oriented and appropriate. His JVP is not high. Lungs are clear. I do not appreciate wheezing, crackles, even though on the bases there are some end inspiratory crackles, very faint. Heart exam reveals irregular tachycardia. No gallop or rub. Abdomen is soft, nontender. Extremities are free of edema. LABORATORIES: Basic metabolic panel is normal. C-reactive protein 0.5, albumin is 3.3. CBC is normal. ASSESSMENT/PLAN: Mr. Jose Rincon is a middle-aged man who presented with congestive heart failure. He was found to be in atrial fibrillation with rapid ventricular response (RVR). An echocardiogram revealed severe left ventricular systolic dysfunction with also RV dysfunction and severe biatrial enlargement. 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 In talking to the patient, it looks like his symptoms have been present for long time, possibly starting in January. I do not believe that we need to transfer him for a heart catheterization. I think we should first accomplish better heart rate control and then the procedure can be done on an outpatient basis. I will increase the dose of metoprolol as he is not well rate-controlled yet. It would be my preference that we do not utilize much digoxin if possible. Will see how he responds to metoprolol and hopefully digoxin will be able to be discontinued tomorrow. He is already on low dose of LIZZETTE inhibitor, then depending on blood pressure response we might be able to titrate this up. I do expect that he will need another couple days in the hospital before he will be ready for discharge.
[2019-08-04] MEDS ORDERED: METOPROLOL TART 50 MG TAB PO ONE (08:45)
[2019-08-04] MEDS: INDOMETHACIN 25 MG CAP PO SCH ×2 (09:12→20:34)
[2019-08-04] MEDS: ALLOPURINOL 100 MG TAB PO SCH (09:13)
[2019-08-04] MEDS: DOCUSATE SODIUM 100 MG CAP PO SCH ×2 (09:13→20:34)
[2019-08-04] MEDS: LISINOPRIL 5 MG TAB PO SCH (09:13)
[2019-08-04] MEDS: SENNA 8.6 MG TAB (SENOKOT) PO SCH ×2 (09:13→20:34)
[2019-08-04] MEDS: DIGOXIN INJ 0.5 MG/2 ML AMP (J1160) IV SCH (09:13)
[2019-08-04] MEDS: FUROSEMIDE 40 MG/4 ML VIAL (J1940) IV SCH ×2 (09:14→17:03)
[2019-08-04 12:00] VITALS: BP 120/67
[2019-08-04] MEDS: ENOXAPARIN 100MG/1ML SYRINGE (J1650) SC SCH ×2 (13:08→23:37)
[2019-08-04 16:00] VITALS: BP 106/56
--- NOTE | 2019-08-04 19:55 | IPNPDOC ---
Text Note Date of Service The patient was seen on 08/04/19. NOTE SUBJECTIVE: The patient continues to appear well given his underlying diagnoses. He does not have shortness of breath or chest pain. He is showing some improvement. Rate control for his new onset atrial fibrillation and continues medical management of his new finding of chronic systolic congestive heart failure. OBJECTIVE: See vital signs below Physical exam: HENT: Neck is supple with no adenopathy or thyromegaly, oral mucosa is moist. Cardiovascular: accelerated irregular rate and rhythm Respiratory: Patient has diminished breath sounds to the left base. He has rare rales Abdomen: Soft, nontender, nondistended, bowel tones present. Extremities: Patient does exhibit trace edema to the feet and legs with mild tenderness to palpation, pedal pulses are otherwise palpable, The patient developed acute swelling to the left knee. There is no remarkable erythema, but the site is tender with ballotable fluid. Effusion is decreasing in size and patient is more able to bear weight and ambulate. Neuro: No focal neuromotor or sensory deficit ASSESSMENT/PLAN: 1. Atrial fibrillation with rapid ventricular response. This is of new onset. Patient had been most responsive to IV Cardizem. He has been successfully transitioned over to oral agent/agents for rate control; these include digoxin and increased metoprolol. We appreciate the assistance of the cardiology service. Additionally, the patient is on anticoagulation with Lovenox, but will need to transition to an oral agent as well. 2. Acute systolic congestive heart failure. The patient had had worsening lower extremity edema and episodes of activity intolerance. Echocardiogram shows ejection fraction of 20-25%. It also notes biatrial enlargement and pulmonary arterial pressures of 40 mmHg. Patient had already been placed on an initial treatment regimen inclusive of beta collette, LIZZETTE inhibitor and diuretic. This regimen will need to be optimized once the patient's heart rate is controlled. Other eventual interventions may include coronary angiogram, LifeVest and discussion of possible AICD placement--all discussed with the cardiology service and with patient who is agreeable. 3. Left knee joint. The patient has developed acute swelling and pain to his left knee. There is no erythema or induration. The patient has a large effusion with ballotable fluid. He has not had fever and does not have leukocytosis Inflammatory indicators are remarkably negative. Sedimentation rate is 3. Patient does have elevated uric acid of 9, but this is not diagnostic. Case has been discussed with the orthopedic service who recommends empiric treatment for gout. Patient has been placed on allopurinol and indomethacin and appears to be responding. VS,Fishbone, I+O VS, Fishbone, I+O Vital Signs Date Time Temp Pulse Resp B/P (MAP) Pulse Ox O2 Delivery O2 Flow Rate FiO2 08/04/19 16:30 112 08/04/19 16:00 98.0 20 106/56 (73) 93 07/31/19 16:00 2.0 07/30/19 20:21 Nasal Cannula I&O- Last 24 Hours up to 6 AM 08/04/19 06:00 Intake Total 2640 ml Output Total 2575 ml Balance 65 ml HUNTER AMAYA MD Aug 04, 2019 19:54
[2019-08-04 20:00] VITALS: BP 102/60
[2019-08-04] MEDS: METOPROLOL TARTRATE 100 MG TAB PO SCH (20:34)
[2019-08-05] VITALS (7 sets, daily range): BP systolic 108–147; BP diastolic 64–81
--- NOTE | 2019-08-05 02:16 | IPN ---
DATE: 08/02/2019 Mr. Jose Rincon was seen this morning. He was lying supine in bed in no acute distress at rest, and his son was at bedside. He denies any chest pain. There is no orthopnea or paroxysmal nocturnal dyspnea (PND). His heart rate was going fast today, according to the nurse, when he walks from the bed to the bathroom. It seemed that yesterday in the afternoon, he started having pain in his left knee and the pain this morning was more severe; and on a scale of 0-10, it was an 8 prior to receiving any analgesic. After receiving Tylenol, it was a 5. He denies any fever. His heart rate seems to be going faster than yesterday, and when he is at rest, it is between 100 and 120 beats per minute; but when he moves around, it goes up to 130-140 beats per minute. There is no report of bleeding. There is no nausea, vomiting, diarrhea, melena, or hematemesis. There is no focal manifestation. PHYSICAL EXAMINATION: Patient is alert and oriented, in no acute distress at rest, and his vital signs this morning revealed a blood pressure of 138/74 with a pulse of about 120 when I was at bedside, respirations 18, and his maximum temperature was 98.8 degrees Fahrenheit. His oxygen saturation on room air is 98%. He has a negative fluid balance of 1.3 liters for 08/01/2019. Examination of the head: Atraumatic. Neck is supple and slight jugular venous distention (JVD) noted. The lungs only revealed minimal crackles at the bases. The heart examination revealed irregularly irregular heart sounds without gallops. The point of maximal impulse (PMI) is displaced inferiorly and laterally. There is no rub. There is a systolic murmur, grade 1-2 over 6, at the lower left sternal border and at the apex, some radiation to the axilla Abdomen is soft, nontender. Extremities revealed trace ankle edema. The left knee is swollen and tender with probably some fluid collection between the joints. Neurologic examination grossly is negative for focal deficit. LABS: BMP sodium of 137, potassium 4.0, chloride 103, CO2 of 27, BUN 19, creatinine 0.8, GFR more than 60, fasting glucose 91, and calcium 8.7. CBC revealed WBC 8.3, hemoglobin 14.3, hematocrit 44.0, and platelet 162,000. X-ray of the left knee revealed chronic changes with lateral subluxation of the patella. Ultrasound of the left lower extremity revealed no evidence of deep venous thrombosis (DVT). IMPRESSION: 1. Atrial fibrillation with uncontrolled ventricular rate. This is probably related to the inflammatory process involving his left knee. Ultrasound and x-ray so far are negative. I am suspecting that he probably has an episode of gout, and I will check his uric acid level. In the meantime, I will give him one dose of IV amiodarone and hopefully this will slow it down. His metoprolol tartrate will be increased to every 8 hours, and I have stopped the digoxin. He is currently on Lovenox, and he will continue the same for now. I am contemplating proceeding with a cardiac catheterization this coming week for further evaluation. 2. Cardiomyopathy, severe from unclear etiology and may be tachycardia induced, but underlying coronary artery disease (CAD) will need to be ruled out. He will continue current medications, and the immediate plan is to proceed this coming week with a cardiac catheterization to assess his coronary anatomy and have a treatment plan. 3. Status post abnormal liver function tests (LFTs), resolving, and, thus, was probably related to his heart failure. 4. Left knee <<9:00>> pain, and this is being addressed. This will be discussed with his hospitalist. It was a pleasure to participate the care of Mr. Jose Rincon for his underlying cardiac condition. I will continue to monitor him along with you. Please do not hesitate to call if any questions.
[2019-08-05] MEDS: SLF 3 ML SYR IV SCH ×3 (05:07→20:53)
[2019-08-05 06:07] LABS: BLOOD UREA NITROGEN 26 MG/DL (7-18); CARBON DIOXIDE LEVEL 33 MEQ/L (21-32); CHLORIDE LEVEL 102 MEQ/L (98-107); CREATININE FOR GFR 1.02 MG/DL (0.70-1.30); GLOMERULAR FILTRATION RATE > 60.0 (>49); GLUCOSE, FASTING 91 MG/DL (70-100); POTASSIUM SERUM 4.7 MEQ/L (3.5-5.1); SODIUM LEVEL 140 MEQ/L (136-145)
[2019-08-05] MEDS: INDOMETHACIN 25 MG CAP PO SCH ×2 (08:08→20:02)
[2019-08-05] MEDS: LISINOPRIL 5 MG TAB PO SCH (08:09)
[2019-08-05] MEDS: ALLOPURINOL 100 MG TAB PO SCH (08:09)
[2019-08-05] MEDS: METOPROLOL TARTRATE 100 MG TAB PO SCH ×2 (08:09→20:00)
[2019-08-05] MEDS: DOCUSATE SODIUM 100 MG CAP PO SCH ×2 (08:09→20:03)
[2019-08-05] MEDS: SENNA 8.6 MG TAB (SENOKOT) PO SCH ×2 (08:09→20:03)
[2019-08-05] MEDS: DIGOXIN INJ 0.5 MG/2 ML AMP (J1160) IV SCH (08:10)
[2019-08-05] MEDS: FUROSEMIDE 40 MG/4 ML VIAL (J1940) IV SCH ×2 (08:10→16:01)
--- NOTE | 2019-08-05 09:19 | IPN ---
DATE: 08/05/2019 Mr. Rincon has been feeling fine. He was able to sleep without paroxysmal nocturnal dyspnea. His heart rate was well controlled throughout night in mostly 50s and 60s, but in the morning when he started moving his heart rate went right up to about 110, but he is asymptomatic with it and he did not take his morning medications only a few minutes ago. Vital signs: Blood pressure 120/64. He is afebrile. Oxygen saturation 96%. Weight 90.1 kg. He is alert, oriented and appropriate. His jugular venous pressure is not up. Lungs are clear. Heart exam reveals irregularly irregular rhythm without gallop or rub. Abdomen is soft and nontender. There is no peripheral edema. LABORATORY: There was no CBC performed. Basic metabolic panel is normal. ASSESSMENT/PLAN: Mr. Rincon is a 59-year-old man who came with heart failure and was found to be in atrial fibrillation with rapid ventricular response. 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 His heart rate is still not perfectly well controlled, but the dose of metoprolol was increased just yesterday. I will leave his medications unchanged. I foresee that he will be discharged home tomorrow. I will contact [facility] for tentative plans for LifeVest placement. I had a long discussion with the patient and his son about this today. Otherwise, I do not have a new recommendations.
[2019-08-05] MEDS: ENOXAPARIN 100MG/1ML SYRINGE (J1650) SC SCH ×2 (11:15→23:50)
--- NOTE | 2019-08-05 17:07 | IPNPDOC ---
Text Note Date of Service The patient was seen on 08/05/19. NOTE SUBJECTIVE: Mr. Rincon is doing well. He continues to not have chest pain or shortness of breath. Patient is admitted with tachyarrhythmia thought to be atrial fibrillation of new onset. He is also found to have new onset chronic systolic congestive heart failure. OBJECTIVE: Please see vital signs below--heart rate has been as low as 64. Physical exam: HENT: Neck is supple with no adenopathy or thyromegaly, oral mucosa is moist. Cardiovascular: accelerated irregular rate and rhythm Respiratory: Patient is generally clear to auscultation Abdomen: Soft, nontender, nondistended, bowel tones present. Extremities: Patient does exhibit trace edema to the feet and legs with mild tenderness to palpation, pedal pulses are otherwise palpable, The patient developed acute swelling to the left knee. There is no remarkable erythema. There is decreased swelling, pain and decreased ballotable fluid. Effusion is decreasing in size and patient is more able to bear weight and ambulate. Neuro: No focal neuromotor or sensory deficit ASSESSMENT/PLAN: 1. Atrial fibrillation with rapid ventricular response. This is of new onset. Patient had been most responsive to IV Cardizem. He has been successfully transitioned over to oral agent/agents for rate control; these include digoxin and increased metoprolol. We appreciate the assistance of the cardiology service. Additionally, the patient is on anticoagulation with Lovenox, but will need to transition to an oral agent at discharge. 2. Acute systolic congestive heart failure. The patient had had worsening lower extremity edema and episodes of activity intolerance. Echocardiogram shows ejection fraction of 20-25%. It also notes biatrial enlargement and pulmonary arterial pressures of 40 mmHg. Patient had already been placed on an initial treatment regimen inclusive of beta collette, LIZZETTE inhibitor and diuretic. Digoxin has been added. This regimen will need to be optimized once the patient's heart rate is controlled. Other eventual interventions may include coronary angiogram, LifeVest and discussion of p ossible AICD placement--all discussed with the cardiology service and with patient who is agreeable. Anticipate discharge to home within the next 24-48 hours. 3. Left knee joint. The patient has developed acute swelling and pain to his left knee. There is no erythema or induration. The patient has a large effusion with ballotable fluid. He has not had fever and does not have leukocytosis Inflammatory indicators are remarkably negative. Sedimentation rate is 3. Patient does have elevated uric ac id of 9, but this is not diagnostic. Case has been discussed with the orthopedic service who recommends empiric treatment for gout. Patient has been placed on allopurinol and indomethacin and appears to be responding. VS,Fishbone, I+O VS, Fishbone, I+O Laboratory Tests 08/05/19 04:53 Calcium Level 9.0 Vital Signs Date Time Temp Pulse Resp B/P (MAP) Pulse Ox O2 Delivery O2 Flow Rate FiO2 08/05/19 16:01 112/70 (84) 08/05/19 12:00 97.0 90 20 98 07/31/19 16:00 2.0 07/30/19 20:21 Nasal Cannula I&O- Last 24 Hours up to 6 AM 08/05/19 06:00 Intake Total 2820 ml Output Total 1950 ml Balance 870 ml HUNTER AMAYA MD Aug 05, 2019 17:07
[2019-08-06] VITALS: BP 112/76
[2019-08-06 04:00] VITALS: BP 107/59
[2019-08-06 05:36] LABS: HEMATOCRIT 45.5 % (42.0-52.0); HEMOGLOBIN 14.9 g/dl (13.5-17.5); MEAN CORPUSCULAR HEMOGLOBIN 29.7 pg (27.0-33.0); MEAN CORPUSCULAR HGB CONC 32.7 g/dl (32.0-36.5); MEAN CORPUSCULAR VOLUME 90.8 fl (80.0-96.0); PLATELET COUNT, AUTOMATED 196 10^3/uL (150-450); RED BLOOD COUNT 5.01 10^6/uL (4.30-6.10); WHITE BLOOD COUNT 7.3 10^3/uL (4.0-10.0)
[2019-08-06] MEDS: SLF 3 ML SYR IV SCH ×3 (06:39→20:21)
[2019-08-06 08:00] VITALS: BP 140/80
--- NOTE | 2019-08-06 08:08 | IPN ---
DATE: 08/06/2019 Mr. Rincon has been doing well. He was able to ambulate yesterday without difficulty. His heart rate is still not perfect, especially before he gets this morning of metoprolol in preceding couple hours his heart rate becomes tachycardiac but during the day he was typically around 100 or slightly below, at night he was in 70s, but then with activity goes up rapidly. No bradycardic episodes. Blood pressure 107/59. Saturation 98% on room air. He is afebrile. Fluid balance yesterday was recorded negative 2400. Weight is 89.3 kg. Jugular venous pulse (JVP) is not up. Lungs are clear. Good air movement. Heart: Exam reveals irregularly irregular rhythm. Faint murmur at the apex. No gallop. Abdomen: Soft, nontender. No peripheral edema. Neurologically he is intact. LABORATORY: Basic metabolic panel is normal and CBC is also normal. ASSESSMENT AND PLAN: Mr. Rincon is a 59-year-old man who presented with congestive heart failure and was found to have atrial fibrillation with rapid ventricular response. He has had some symptoms for approximately 6 months so I assume that he probably developed atrial fibrillation and secondary tachycardia induced cardiomyopathy. He is at this point hemodynamically compensated as far as the fluid status is concerned and I am going to reduce the dose of furosemide to just 20 mg daily orally. His heart rate is still not perfectly well control and I am going to advance the dose of metoprolol further, we will give him long-acting preparation and Toprol XL to get 200 mg in the morning and start taking 100 mg at night. He also will continue digoxin and a small dose 0.125 mg daily and I am hoping that I will eventually be able to discontinue on outpatient basis. I will contact the [facility] for placement of the LifeVest hopefully it can be accomplished today and he can be discharged home afterwards. If this cannot be arranged for today, I think that he still can be discharged and he will have the vest placed on outpatient basis probably not later than tomorrow. He never had any ventricular arrhythmias and consequently his risk of sudden cardiac this is actually quite low. 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 I do hope there will be recovery of LV systolic function and he will return to normal life.
[2019-08-06] MEDS: ALLOPURINOL 100 MG TAB PO SCH (09:14)
[2019-08-06] MEDS: FUROSEMIDE 20 MG TAB PO SCH (09:14)
[2019-08-06] MEDS: DIGOXIN INJ 0.5 MG/2 ML AMP (J1160) IV SCH (09:14)
[2019-08-06] MEDS: SENNA 8.6 MG TAB (SENOKOT) PO SCH ×2 (09:14→20:21)
[2019-08-06] MEDS: DOCUSATE SODIUM 100 MG CAP PO SCH ×2 (09:14→20:20)
[2019-08-06] MEDS: LISINOPRIL 5 MG TAB PO SCH (09:14)
[2019-08-06] MEDS: METOPROLOL SUCC (TopROL XL) 100MG *XL* TAB PO SCH (09:15)
[2019-08-06] MEDS: APIXABAN 5 MG TAB (ELIQUIS) PO SCH ×2 (09:15→20:21)
[2019-08-06 12:00] VITALS: BP 109/69
[2019-08-06 16:00] VITALS: BP 119/71
--- NOTE | 2019-08-06 19:40 | IPNPDOC ---
Text Note Date of Service The patient was seen on 08/06/19. NOTE SUBJECTIVE: The patient is demonstrating improved heart rate control. He is tachycardic at times. Patient has done 15 laps around the nurse's station. He does not have chest pain or shortness of breath or palpitations. Patient was admitted with new onset atrial fibrillation and systolic congestive heart failure. OBJECTIVE: Physical exam: HENT: Neck is supple with no adenopathy or thyromegaly, oral mucosa is moist. Cardiovascular: accelerated irregular rate and rhythm Respiratory: Patient is generally clear to auscultation Abdomen: Soft, nontender, nondistended, bowel tones present. Extremities: Patient does exhibit trace edema to the feet and legs with mild tenderness to palpation, pedal pulses are otherwise palpable, The patient developed acute swelling to the left knee. There is no remarkable erythema. There is decreased swelling, pain and decreased ballotable fluid. Effusion is decreasing in size and patient is more able to bear weight and ambulate. Neuro: No focal neuromotor or sensory deficit ASSESSMENT/PLAN: 1. Atrial fibrillation with rapid ventricular response. This is of new onset. He has been successfully transitioned over to oral age nt/agents for rate control; these include digoxin and increased metoprolol. We appreciate the assistance of the cardiology service. Additionally, patient has been transitioned to oral anticoagulation with A bad. 2. Acute systolic congestive heart failure. The patient had had worsening lower extremity edema and episodes of activity intolerance. Echocardiogram shows ejection fraction of 20-25%. It also notes biatrial enlargement and pulmonary arterial pressures of 40 mmHg. Per cardiology this may reflect cardiomyopathy due to the tachyarrhythmia from atrial fibrillation. Patient had already been placed on an initial treatment regimen inclusive of beta collette, LIZZETTE inhibitor and diuretic. Digoxin has been added. This regimen will need to be optimized once the patient's heart rate is control led. Other eventual interventions may include coronary angiogram, LifeVest and discussion of possible AICD placement--all discussed with the cardiology service and with patient who is agreeable. Anticipate discharge to home within the next 24-48 hours. 3. Left knee joint. The patient has developed acute swelling and pain to his left knee. There is no erythema or induration. The patient has a large effusion with ballotable fluid. He has not had fever and does not have leukocytosis Inflammatory indicators are remarkably negative. Sedimentation rate is 3. Patient does have elevated uric acid of 9, but this is not diagnostic. Case has been discussed with the orthopedic service who recommended empiric treatment for gout. Patient has been placed on allopurinol and indomethacin and appears to be responding. VS,Fishbone, I+O VS, Fishbone, I+O Laboratory Tests 08/06/19 05:13 Vital Signs Date Time Temp Pulse Resp B/P (MAP) Pulse Ox O2 Delivery O2 Flow Rate FiO2 08/06/19 16:00 96.7 96 18 119/71 (87) 100 07/31/19 16:00 2.0 I&O- Last 24 Hours up to 6 AM 08/06/19 06:00 Intake Total 1500 ml Output Total 3625 ml Balance -2125 ml HUNTER AMAYA MD Aug 06, 2019 19:40
[2019-08-06 20:00] VITALS: BP 122/68
[2019-08-06] MEDS ORDERED: METOPROLOL SUCC (TopROL XL) 100MG *XL* TAB PO SCH (21:00)
[2019-08-07] VITALS: BP 110/70
[2019-08-07 04:00] VITALS: BP 114/72
[2019-08-07] MEDS: SLF 3 ML SYR IV SCH ×2 (06:16→08:30)
[2019-08-07 07:50] VITALS: BP 127/79
[2019-08-07] MEDS: SENNA 8.6 MG TAB (SENOKOT) PO SCH (08:29)
[2019-08-07] MEDS: DOCUSATE SODIUM 100 MG CAP PO SCH (08:29)
[2019-08-07] MEDS: LISINOPRIL 5 MG TAB PO SCH (08:29)
[2019-08-07] MEDS: APIXABAN 5 MG TAB (ELIQUIS) PO SCH (08:29)
[2019-08-07] MEDS: ALLOPURINOL 100 MG TAB PO SCH (08:29)
[2019-08-07] MEDS: FUROSEMIDE 20 MG TAB PO SCH (08:29)
[2019-08-07] MEDS: DIGOXIN INJ 0.5 MG/2 ML AMP (J1160) IV SCH (08:30)
[2019-08-07 08:42] VITALS: BP 127/69
[2019-08-07] MEDS: METOPROLOL SUCC (TopROL XL) 100MG *XL* TAB PO SCH (08:42)
[2019-08-07] MEDS ORDERED: ALLO10TA PO (08:58)
[2019-08-07] MEDS ORDERED: LISI-542 PO (08:58)
[2019-08-07] MEDS ORDERED: FURO20TA2 PO (08:58)
[2019-08-07] MEDS ORDERED: OXYCO5TA PO (08:58)
[2019-08-07] MEDS ORDERED: METO1TAB33 PO ×2 (08:58)
[2019-08-07] MEDS ORDERED: ELIQ5TAB PO (08:58)
[2019-08-07] MEDS ORDERED: DIGO0.12 PO (08:58)
[2019-08-07] MEDS ORDERED: INDO50CA91 PO (09:05)
== END 2019-08-07 12:05 | disposition home or self-care (01) | DRG 308 ==
LOC: EDBD 18:23 → M ED 18:23 → M ED INP 18:24 → M PCU 07-31 01:49 → OBSVTOIN 07-31 09:46
PROVIDERS: ADMIT Internal Medicine; ATTEND Internal Medicine
DX: I48.91 Unspecified atrial fibrillation (principal); I50.21 Acute systolic (congestive) heart failure; J90 Pleural effusion, not elsewhere classified; Z86.718 Personal history of other venous thrombosis and embolism; Z79.899 Other long term (current) drug therapy; I34.0 Nonrheumatic mitral (valve) insufficiency; I42.0 Dilated cardiomyopathy; M10.9 Gout, unspecified

== ENCOUNTER 2020-11-24 16:39 | Emergency (ER) | payer OTHER ==
[~2020-11-24] VITALS: Ht 182.9 cm; Wt 97.2 kg
[~2020-11-24 16:39] MED LIST: ALLO10TA PO; DIGO0.123 PO; ELIQ5TAB PO; FURO20TA2 PO; INDO50CA91 PO; LISI-542 PO; METO1TAB33 PO; OXYCO5TA PO
--- OUTSIDE RECORDS SUMMARY | 2020-11-24 16:45 | CCD ---
Author Author [facility] Organization [facility] Address Unknown Phone Unavailable Care Team Providers Care Boilermaker Name Role Phone Kocan, J Zoey STEM PROCESSING MACHINE OPERATOR Unavailable Unavailable Kocan, J Zoey STEM PROCESSING MACHINE OPERATOR Unavailable Unavailable Kocan, J Zoey STEM PROCESSING MACHINE OPERATOR Unavailable Unavailable Kocan, J Zoey STEM PROCESSING MACHINE OPERATOR Unavailable Unavailable Kocan, J Zoey STEM PROCESSING MACHINE OPERATOR Unavailable Unavailable Kocan, J Zoey STEM PROCESSING MACHINE OPERATOR Unavailable Unavailable Kocan, J Zoey STEM PROCESSING MACHINE OPERATOR Unavailable Unavailable Kocan, J Zoey STEM PROCESSING MACHINE OPERATOR Unavailable Unavailable Kocan, J Zoey STEM PROCESSING MACHINE OPERATOR Unavailable Unavailable Kocan, J Zoey STEM PROCESSING MACHINE OPERATOR Unavailable Unavailable Kocan, J Zoey STEM PROCESSING MACHINE OPERATOR Unavailable Unavailable Kocan, J Zoey STEM PROCESSING MACHINE OPERATOR Unavailable Unavailable Kocan, J Zoey STEM PROCESSING MACHINE OPERATOR Unavailable Unavailable ОЛЕГ HUGHES MD Unavailable Unavailable ОЛЕГ HUGHES MD Unavailable Unavailable ОЛЕГ HUGHES MD Unavailable Unavailable ОЛЕГ HUGHES MD Unavailable Unavailable ОЛЕГ HUGHES MD Unavailable Unavailable ОЛЕГ HUGHES MD Unavailable Unavailable ОЛЕГ HUGHES MD Unavailable Unavailable ОЛЕГ HUGHES MD Unavailable Unavailable ОЛЕГ HUGHES MD Unavailable Unavailable ОЛЕГ HUGHES MD Unavailable Unavailable ОЛЕГ HUGHES MD Unavailable Unavailable ОЛЕГ HUGHES MD Unavailable Unavailable ОЛЕГ HUGHES MD Unavailable Unavailable ОЛЕГ HUGHES MD Unavailable Unavailable ОЛЕГ HUGHES MD Unavailable Unavailable ОЛЕГ HUGHES MD Unavailable Unavailable ОЛЕГ HUGHES MD Unavailable Unavailable ОЛЕГ HUGHES MD Unavailable Unavailable ОЛЕГ HUGHES MD Unavailable Unavailable ОЛЕГ HUGHES MD Unavailable Unavailable ОЛЕГ HUGHES MD Unavailable Unavailable ОЛЕГ HUGHES MD Unavailable Unavailable ОЛЕГ HUGHES MD Unavailable Unavailable ОЛЕГ HUGHES MD Unavailable Unavailable SAUL, DENNEY MD Unavailable Unavailable SAUL, DENNEY MD Unavailable Unavailable SAUL, DENNEY MD Unavailable Unavailable SAUL, DENNEY MD Unavailable Unavailable SAUL, DENNEY MD Unavailable Unavailable SAUL, DENNEY MD Unavailable Unavailable SAUL, DENNEY MD Unavailable Unavailable SAUL, DENNEY MD Unavailable Unavailable SAUL, DENNEY MD Unavailable Unavailable SAUL, DENNEY MD Unavailable Unavailable SAUL, DENNEY MD Unavailable Unavailable SAUL, DENNEY MD Unavailable Unavailable SAUL, DENNEY MD Unavailable Unavailable SAUL, DENNEY MD Unavailable Unavailable SAUL, DENNEY MD Unavailable Unavailable SAUL, DENNEY MD Unavailable Unavailable SAUL, DENNEY MD Unavailable Unavailable SAUL, DENNEY MD Unavailable Unavailable SAUL, DENNEY MD Unavailable Unavailable SAUL, DENNEY MD Unavailable Unavailable SAUL, DENNEY MD Unavailable Unavailable SAUL, DENNEY MD Unavailable Unavailable SAUL, DENNEY MD Unavailable Unavailable SAUL, DENNEY MD Unavailable Unavailable SAUL, DENNEY MD Unavailable Unavailable SAUL, DENNEY MD Unavailable Unavailable SAUL, DENNEY MD Unavailable Unavailable SAUL, DENNEY MD Unavailable Unavailable SAUL, DENNEY MD Unavailable Unavailable SAUL, DENNEY MD Unavailable Unavailable Re-disclosure Warning The records that you are about to access may contain information from federally-assisted alcohol or drug abuse programs. If such information is present, then the following federally mandated warning applies: This information has been disclosed to you from records protected by federal confidentiality rules (42 CFR part 2). The federal rules prohibit you from making any further disclosure of this information unless further disclosure is expressly permitted by the written consent of the person to whom it pertains or as otherwise permitted by 42 CFR part 2. A general authorization for the release of medical or other information is NOT sufficient for this purpose. The Federal rules restrict any use of the information to criminally investigate or prosecute any alcohol or drug abuse patient.The records that you are about to access may contain highly sensitive health information, the redisclosure of which is protected by Article 27-F of the [facility] Public Health law. If you continue you may have access to information: Regarding HIV / AIDS; Provided by facilities licensed or operated by the [facility] Office of Mental Health; or Provided by the [facility] Office for People With Developmental Disabilities. If such information is present, then the following [facility] mandated warning applies: This information has been disclosed to you from confidential records which are protected by state law. State law prohibits you from making any further disclosure of this information without the specific written consent of the person to whom it pertains, or as otherwise permitted by law. Any unauthorized further disclosure in violation of state law may result in a fine or prison sentence or both. A general authorization for the release of medical or other information is NOT sufficient authorization for further disc losure. Family History Family Member Name Family Member Gender Family Member Status Date o f Status Description Data Source(s) Unknown Unknown Problem [facility] ([facility]) Encounters Encounter Providers Location Date Indications Data Source(s ) Outpatient Attender: ОЛЕГ HUGHES MDReferrer: Zoey [email or web address]-[email or web address].JESUS 11/12/2020 12:00:00 AM [facility] - 11/12/2020 03:57:12 PM [facility] Outpatient Referrer: Zoey PRO-SJPChiJESUS 11/12/2020 1 2:00:00 AM [facility] Outpatient MORTEZA-SJP.JESUS 05/05/2020 12:00:00 AM EDT [facility] Outpatient Attender: ОЛЕГ HUGHES MDConsultant: ОЛЕГ Ulloa JP.[email or web address]-[email or web address] 04/30/2020 03:06:48 PM EDT - 04/30/2020 04:11:14 PM EDT [facility] Outpatient Attender: ОЛЕГ PRO-SJP.JESUS 0 12:00:00 AM EDT - 01/30/2020 02:44:57 PM EDT [facility] Outpatient Attender: ОЛЕГ PRO-SJP.JESUS 10/01/2019 12:00:00 AM [facility] Medications Medication Brand Name Start Date Product Form Dose Route Admi nistrative Instructions Pharmacy Instructions Status Indications Reaction Description Data Source(s) Digoxin 0.125 MG Oral Tablet digoxin (LANOXIN) 125 MCG tablet digoxin (LANOXIN) 125 MCG tablet 05/31/2020 12:00:00 AM EDT 125 ug Oral active Persistent atrial fibrillationCardiomyopathy, unspecified type Ta ke 1 tablet (125 mcg total) by mouth daily [facility] Persistent atrial fibrillation Cardiomyopathy, unspecified type 24 HR metoprolol succinate 100 MG Extend ed Release Oral Tablet metoprolol succinate (TOPROL-XL) 100 MG 24 hr tablet metoprolol succinate (TOPROL-XL) 100 MG 24 hr tablet 05/31/2020 12:00:00 AM EDT 100 mg Oral active Cardiomyopathy, unspecified typePersistent atrial fibrillation Take 1 tablet (100 mg total) by mouth 2 (two) times a day [facility] Cardiomyopathy, unspecified type Persistent atrial fibrillation Furosemide 20 MG Oral Tablet furosemide (LASIX) 20 MG tablet furosemide (LASIX) 20 MG tablet 05/31/2020 12:00:00 AM EDT 20 mg Oral active Persistent atrial fibrillationCardiomyopathy, unspecified type Ta ke 1 tablet (20 mg total) by mouth daily [facility] Persistent atrial fibrillation Cardiomyopathy, unspecified type apixaban 5 MG Oral Tablet [Eliquis] ELIQUIS 5 MG TABS tablet ELIQUIS 5 MG TABS tablet 05/31/2020 12:00:00 AM EDT 5 mg Oral activ e Persistent atrial fibrillationCardiomyopathy, unspecified type Take 1 ta blet (5 mg total) by mouth 2 (two) times a day [facility] Persistent atrial fibrillation Cardiomyopathy, unspecified type Lisinopril 2.5 MG Oral Tablet lisinopril (PRINIVIL,ZES TRIL) 2.5 MG tablet lisinopril (PRINIVIL,ZESTRIL) 2.5 MG tablet 04/30/2020 12:00:00 AM EDT 2.5 mg Oral active Hypertension, un specified typePersistent atrial fibrillationCardiomyopathy, unspecified type Take 1 ta blet (2.5 mg total) by mouth daily [facility] Hypertension, unspecified type Persistent atrial fibrillation Cardiomyopathy, unspecified type Insurance Providers Payer name Policy type / Coverage type Policy ID Covered constitution party ID Covered constitution party's relationship to omer Policy Omer Plan Information [facility] [id number] [facility] [id number] [facility] [id number] [facility] [id number] [facility] [id number] [facility] [facility] (HMO) [id number] Family Dependent [id number] [place]NNETTE UNAVAILABLE UNAVAILA BLE [employer]-O/P [id number] Problems, Conditions, and Diagnoses Code Display Name Description Problem Type Effective Dates Data Source(s) E78.5 Hyperlipidemia, unspecified Hyperlipidemia, unspecifie d Diagnosis 04/30/2020 03:06:48 PM EDT [facility] M10.9 Gout, unspecified Gout, unspecified Diagnosis 04/30/2020 03:06:48 PM EDT [facility] I10 Essential (primary) hypertension Essential (primary) h ypertension Diagnosis 04/30/2020 03:06:48 PM EDT [facility] I48.19 Other persistent atrial fibrillation Oth er persistent atrial fibrillation Diagnosis 04/30/2020 03:06:48 PM EDT [facility] I42.9 Cardiomyopathy, unspecified Cardiomyopathy, unspecifie d Diagnosis 04/30/2020 03:06:48 PM EDT [facility] Results ID Date Data Source [id number] 11/13/2020 03:38:55 PM EST [facility] Name Value Range Interpretation Code Description Data Radha rce(s) Supporting Document(s) &PDF [facility] KVTQNu1vFvEVXsIs18/VENuvQZIbs7GpHYgnXKr8PLrjNTQcF4MikHhwIG3QERHWPHqFMPGIWNgIRL9c oRX [file] Donor Recruiter/6XrcyiCLmGdNgCloLSMhNlwiLRc68D7HmOiAnd1EwyhkGIUEHEsZxPSk6j1uJ3LMyk52F7KMx28j [file] mlESCw9ERs+aM96masjf5Zb6B2egutwjtt5FSxbd9wL1d0/Jz/database programmer analyst+QIyCNIjWB8v0mQa5KKwrqeOdBU1 [file] AgICAgICAgICAgICAgICAgICAgICAgICAgICAgICAgICAgICAgICAgICAgICAgICAgICAgICAgICAgIC AgICAgICAgICAgICAgICAgICAgICAgICANCiAgICAgICAgICAgICAgICAgICAgICAgICAgICAgICAgIC AgICAgICAgICAgICAgICAgICAgICAgICAgICAgICAg ICAgICAgICAgICAgICAgICAgICAgICAgICAgICAgICAgICANCiAgICAgICAgICAgICAgICAgICAgICAg ICAgICAgICAgICAgICAgICAgICAgICAgICAgICAgICAgICAgICAgICAgICAgICAgICAgICAgICAgICAg ICAgICAgICAgICAgICAgICANCiAgICAgICAgICAgIC AgICAgICAgICAgICAgICAgICAgICAgICAgICAgICAgICAgICAgICAgICAgICAgICAgICAgICAgICAgIC AgICAgICAgICAgICAgICAgICAgICAgICAgICANCiAgICAgICAgICAgICAgICAgICAgICAgICAgICAgIC AgICAgICAgICAgICAgICAgICAgICAgICAgICAgICAg ICAgICAgICAgICAgICAgICAgICAgICAgICAgICAgICAgICAgICANCiAgICAgICAgICAgICAgICAgICAg ICAgICAgICAgICAgICAgICAgICAgICAgICAgICAgICAgICAgICAgICAgICAgICAgICAgICAgICAgICAg ICAgICAgICAgICAgICAgICAgICANCiAgICAgICAgIC AgICAgICAgICAgICAgICAgICAgICAgICAgICAgICAgICAgICAgICAgICAgICAgICAgICAgICAgICAgIC AgICAgICAgICAgICAgICAgICAgICAgICAgICAgICANCiAgICAgICAgICAgICAgICAgICAgICAgICAgIC AgICAgICAgICAgICAgICAgICAgICAgICAgICAgICAg ICAgICAgICAgICAgICAgICAgICAgICAgICAgICAgICAgICAgICAgICANCiAgICAgICAgICAgICAgICAg ICAgICAgICAgICAgICAgICAgICAgICAgICAgICAgICAgICAgICAgICAgICAgICAgICAgICAgICAgICAg ICAgICAgICAgICAgICAgICAgICAgICANCiAgICAgIC AgICAgICAgICAgICAgICAgICAgICAgICAgICAgICAgICAgICAgICAgICAgICAgICAgICAgICAgICAgIC AgICAgICAgICAgICAgICAgICAgICAgICAgICAgICAgICANCjw/lMHvI6mkxGUjmaK1H7ajFe5LDo9LXF 1wt7VuYBNtVXlumhJdElzVGsYoZTImDhkRDig9BVec MU8AuCExO1OcZ1BdRSnhLH1VQNQnKJKjmLApSPIsPQTpBmW5VVCsPMeeGF2CmAWzXBonEWKtHIUjZgJw VXXiIJ8LNYTdK921iuQsVm7KDr3LJqRbIQ6rhb2WZRFxUFFwJqmYSop9FVqjAA4WuKJhH1XhnAAui8sR SjQtI3EBFSR6HRSbHg4MRPQtGtFnSSFlDIvvDV9yVC TwIOEBaSctrdU0VV7UYP3nuvYeNZ8YOiCdGn7nNo6XQaXkM3JfD4ZgFZXeIHFUQWdjPZ4MWYBqKKE3SR GyTRYsRJAKLxXhH59xLQ5SS1Fsj65oOwK1BKFrZtYtAQpfKZ92hIceeyRjuPEyfOabCX6DDx9+DQplbm RvYmoNCnhyZWYNCjAgNDENCjAwMDAwMDAwMDAgNjU1 IfKfRg8ELUVaNJCoPDNnYtKyCEVrTSTiXMxzTZZfLOdbSKPrXYJcXUAiMI5WBeYbUEAvPhK2ShMfVKJy SGAbqe0EFORtVIZaDBP1MONpCGXkEIZeNIupRRUfHYJeWMMhBSJpDQPeGS8ZUbRdYYTgPYQ6DsbxSWMc EVUoqu0LDJLyLVVhMdZ2CDVlTYSgGIWaZDpnTHCdMP S1WTOsITLrCIRsKN5CNrNhKRTzXXk0PYMnBKFvNKSnhy1IQEWdBSZuPwEvGmTnYLHqGULrRSiaQIZyNM J6Lkj6ESKpOMGwNZ0YAbWyQLCqIKd6HGcqIISjZVZkdy6EUNSoUGLuYMn5EQLgRPXxQAXgNLwyZBXmCJ H6OLU2LPDcMWAqWX5LVuRjCLYdMHB5USCnRRUnCOEh rb4FGPVaEYGpEPTeLDRbHYPrHDCoTRsyGSNmMFB3NDIdTBPyUSFaRR7VWhWnNOLuRBW0EcFpENIwCFDk eu1LWAZfBSRyZNbqZOMkHFAcNEYjGUmbHRTpBUQ8WTMwVXUaNJAxPD4TJyTiFZLuIOOoQfPzZAEpVKQn by2YBBNiXWTiLzRxUMNdMENsDKDzAJmlJJDzOLJaZF xeYERlLSDlPH7TIeQgCOTkGcI3DERnRZHyKDZxzj3MDDXpEXRfYrJ1WhMfDSFgJPOgDLqeOLAoEFF6RC stTBCrYRZlAF9XLpIqLDCuFdQ9KbKwKRYkNIRelb6KRFAwAHIbWNf6JORaYJQuSHQvMHmvWQVcLLG8Se Z3HUKgVJDmQL8BGuGpWFXeZJG8WoKxVKPaKIDvpq9Q WVUaPJL5SEbmCtNzMIChXPWiZKevUZPgTIQ2BsaeUSIpSMCnSG6WXaUmHYIeIYG4JUHvQLTiZKQylt8Y PYFkZYY2LzF8CsKnCUQsFDAcLUeeBCKsMRMyUSh6DNRmVQKiLW3TAgGhRZZvJbLuZmOdWUAwZSEace5I LNCyRBE0YKroGiBhTSLmRMWcETcoIQXbWGyfFTa1TF KsDOJmMY7STsUyYNUwTnHiPSRsQLDvLKRbhe6JWEUhQGO5KGKnRAYcYLPrDDCpPNb0bxJdrPIxXPk9FX 2PY9XeihMiEBSSWz1Uo777BXWlCNGlNa6SC2uhKv2bBYFsCKKJYf8ORKf5YpOoTCuxZFGuPaB7U9N0EL deOVVgJ9E3RzCjVMH5OSF+CXn7WDEmLBZvCEN7NRMd LLwuYYT8UKBgCpohVQSyUMq3Fl9sGEDRUd8+YLiklPYzuYmnOQRLKme8PGL1IViiRKCJLy5E ID Date Data Source [id number] 05/05/2020 10:14:08 PM EDT [facility] Name Value Range Interpretation Code Description Data Radha rce(s) Supporting Document(s) CHOLESTEROL @ 197 mg/dL (0-200) [facility] TRIGLYCERIDE @ 69 mg/dL (30-200) [facility] HDL CHOLESTEROL @ 54 mg/dL (>40) [facility] PER NCEP ATP III GUIDELINES:RESULTS LOWE R THAN 40 MG/DL ARE SUGGESTIVEOF INCREASED RISK FOR CORONARY ARTERYDISEASE. RESULTS > OR = TO 60 MG/DL ARECONSIDERED A NEGATIVE RISK FACTOR. CHOL/HDL RATIO 3.6 RATIO [facility] INTERPRETATION OF CHOL-HDL RATIO CHD RISK FEMALE MALEVERY HIGH >8.3 >14.3HIGH 5.6- 8.3 6.7- 14.3AVERAGE 3.7- 5.6 4.0- 6.7BELOW AVERAGE 2.5- 3.7 2.7- 4.0PROTECTED <2.5 <2.7 LDL CHOL (CALC) 129 mg/dL (<130) [facility] PER NCEP ATP III GUIDELINES: OPTIMAL < 100 NEAR OPTIMAL 100 - 129BORDERLINE HIGH 130 - 159 HIGH 160 - 189 VERY HIGH > 189 ID Date Data Source [id number] 05/05/2020 10:14:08 PM EDT [facility] Name Value Range Interpretation Code Description Data Radha rce(s) Supporting Document(s) DIGOXIN 0.5 ng/mL (0.8-2.0) L [facility] ID Date Data Source [id number] 05/05/2020 10:14:08 PM EDT [facility] Name Value Range Interpretation Code Description Data Radha rce(s) Supporting Document(s) SODIUM 138 mmol/L (136-145) [facility] POTASSIUM 5.0 mmol/L (3.6-5.2) [facility] CHLORIDE 105 mmol/L (100-108) [facility] CO2 30 mmol/L (22-31) [facility] ANION GAP 3 mmol/L (7-16) L [facility] UREA NITROGEN 21 mg/dL (7-24) [facility] CREATININE 0.96 mg/dL (0.80-1.30) [facility] BUN/CREAT RATIO 21.9 RATIO (10.0-20.0) H [facility] GLUCOSE 101 mg/dL (70-99) [facility] CALCIUM 9.2 mg/dL (8.4-10.2) [facility] TOTAL PROTEIN 6.8 g/dL (6.4-8.2) [facility] ALBUMIN 4.1 g/dL (3.2-4.5) [facility] GLOBULIN 2.7 g/dL (2.7-4.3) [facility] ALB/GLOB RATIO 1.5 RATIO [facility] ALKALINE PHOSPHATASE 95 U/L (45-117) [facility] BILIRUBIN,TOTAL 0.8 mg/dL (0.0-1.0) [facility] PLEASE NOTE:Total bilirubin results may be falselyelevated in patients taking Eltrombopag. AST (SGOT) 19 U/L (11-39) [facility] ALT (SGPT) 30 U/L (12-78) [facility] GFR >60 ml/min/1.73m2 (>59) [facility] GFR ( AMER) >60 ml/min/1.73m2 (>59) [facility] GFR INTERPRETATION [facility] --NORMAL KIDNEY FUNCTION OR MILD DISEASE - GFR >OR= 60CHRONIC KIDNEY DISEASE - GFR 15 - 59RENAL FAILURE - GFR <15 Est. GFR calculation based on the MDRDstudy equation, which assumes a steadystate for creatinine. Est. GFR should notbe used for medication dosing. ID Date Data Source [id number] 05/05/2020 09:18:07 PM EDT [facility] Name Value Range Interpretation Code Description Data Radha rce(s) Supporting Document(s) WBC 5.5 10*3/uL (4.1-11.0) [facility] [place] RBC 4.57 10*6/uL (4.60-6.10) L [facility] HGB 14.4 g/dL (13.5-18.0) [facility] HCT 42.6 % (41.0-53.0) [facility] MCV 93.3 fL (80.0-95.0) [facility] MCH 31.5 pg (27.0-32.0) [facility] MCHC 33.8 g/dL (32.0-36.0) [facility] RDW 13.4 % (10.5-14.5) [facility] PLT 141 10*3/uL (150-450) L [facility] MPV 11.0 fL (7.1-10.7) H [facility] Procedure Social History Code Duration Value Status Description Data Source(s ) Alcohol intake 04/30/2020 12:00:00 AM EDT Yes completed [facility] Smoking 04/30/2020 12:00:00 AM EDT Never smoker completed Never s moker [facility] Vital Signs ID Date Data Source UNK Name Value Range Interpretation Code Description Data Source(s) Oxygen saturation in Arterial blood by Pulse oximetry 96 % 96 % [facility] Body mass index (BMI) [Ratio] 28.48 kg/m2 28.48 kg/m2 [facility] Body weight 95.255 kg 95.255 kg [facility] Body height 182.9 cm 182.9 cm [facility] Heart rate 86 /min 86 /min [facility] Diastolic blood pressure 70 mm[Hg] 70 mm[Hg] [facility] Systolic blood pressure 112 mm[Hg] 112 mm[Hg] [facility] Patient Treatment Plan of Care Planned Activity Planned Date Details Description Data Source (s) 24 HR metoprolol succinate 100 MG Extended Release Ora l Tablet 05/31/2020 12:00:00 AM EDT [facility] Furosemide 20 MG Oral Tablet 05/31/2020 12:00:00 AM EDT [facility] apixaban 5 MG Oral Tablet [Eliquis] 05/31/2020 12:00:00 AM EDT [facility] Digoxin 0.125 MG Oral Tablet 05/31/2020 12:00:00 AM EDT [facility] Lisinopril 2.5 MG Oral Tablet 04/30/2020 12:00:00 AM EDT [facility]
[2020-11-24] MEDS ORDERED: LISI2.5T2 (17:00)
[2020-11-24] MEDS ORDERED: BOOSTRIX/ADACEL VACCINE (DIPHTH/PERTUSS/ACELL/TETANUS) 0.5ML SYR IM ONE (17:00)
--- NOTE | 2020-11-24 17:33 | REP ---
INDICATION: cut with saw COMPARISON: None. TECHNIQUE: AP, lateral, bilateral oblique views right hand. FINDINGS: There is partial amputation vertically oriented along the 3rd digit distal phalanx with overlying soft tissue injury including partial amputation to the soft tissues. Remainder of the examination is essentially age-appropriate and without further injury. IMPRESSION: Partial amputation involving 3rd digit distal phalanx.. <Electronically signed by Mehul Coronel > 11/24/20 [id number]
--- OUTSIDE RECORDS SUMMARY | 2020-11-24 17:43 | CCD ---
Author Author [facility] Organization [facility] Address Unknown Phone Unavailable Care Team Providers Care Optometric Technologist Name Role Phone Kocan, J Zoey PATIENT ACCESS COORDINATOR Unavailable Unavailable Kocan, J Zoey PATIENT ACCESS COORDINATOR Unavailable Unavailable Kocan, J Zoey PATIENT ACCESS COORDINATOR Unavailable Unavailable Kocan, J Zoey PATIENT ACCESS COORDINATOR Unavailable Unavailable Kocan, J Zoey PATIENT ACCESS COORDINATOR Unavailable Unavailable Kocan, J Zoey PATIENT ACCESS COORDINATOR Unavailable Unavailable Kocan, J Zoey PATIENT ACCESS COORDINATOR Unavailable Unavailable Kocan, J Zoey PATIENT ACCESS COORDINATOR Unavailable Unavailable Kocan, J Zoey PATIENT ACCESS COORDINATOR Unavailable Unavailable Kocan, J Zoey PATIENT ACCESS COORDINATOR Unavailable Unavailable Kocan, J Zoey PATIENT ACCESS COORDINATOR Unavailable Unavailable Kocan, J Zoey PATIENT ACCESS COORDINATOR Unavailable Unavailable Kocan, J Zoey PATIENT ACCESS COORDINATOR Unavailable Unavailable ОЛЕГ HUGHES MD Unavailable Unavailable ОЛЕГ HUGHES MD Unavailable Unavailable ОЛЕГ HUGHES MD Unavailable Unavailable ОЛГЕ HUGHES MD Unavailable Unavailable ОЛЕГ HUGHES MD Unavailable Unavailable ОЛЕГ HUGHES MD Unavailable Unavailable ОЛЕГ HUGHES MD Unavailable Unavailable ОЛЕГ HUGHES MD Unavailable Unavailable ОЛЕГ HUGHES MD Unavailable Unavailable ЛОЕГ HUGHES MD Unavailable Unavailable ОЛЕГ HUGHES MD [...] is protected by Article 27-F of the [facility] Public Health law. If you continue you may have access to information: Regarding HIV / AIDS; Provided by facilities licensed or operated by the [facility] Office of Mental Health; or Provided by the [facility] Office for People With Developmental Disabilities. If such information is present, then the following [facility] mandated warning applies: This information has been [...] law may result in a fine or intermediate sentence or both. A general authorization for [...] HUGHES MDReferrer: Zoey [email or web address]-[email or web address] 11/12/2020 12:00:00 AM [facility] - 11/12/2020 03:57:12 PM [facility] Outpatient Referrer: Zoey PRO-SJPChiJESUS 11/12/2020 1 2:00:00 AM [facility] Outpatient MORTEZA-SJP.JESUS 05/05/2020 12:00:00 AM EDT [facility] Outpatient Attender: ОЛЕГ HUGHES MDConsultant: ОЛЕГ Ulloa JP.[email or web address] 04/30/2020 03:06:48 PM EDT - 04/30/2020 04:11:14 PM EDT [facility] Outpatient Attender: ОЛЕГ PRO-[email or web address].JESUS 0 12:00:00 AM EDT - 01/30/2020 02:44:57 PM EDT [facility] Outpatient Attender: ОЛЕГ PRO-[email or web address].JESUS 10/01/2019 12:00:00 AM [facility] Medications Medication Brand Name Start Date Product Form Dose Route Admi nistrative Instructions Pharmacy Instructions Status Indications Reaction Description Data Source(s) Digoxin 0.125 MG Oral Tablet digoxin (LANOXIN) 125 MCG tablet digoxin (LANOXIN) 125 MCG tablet 05/31/2020 12:00:00 AM EDT 125 ug Oral active Persistent atrial fibrillationCardiomyopathy, unspecified type Ta ke 1 tablet (125 mcg total) by mouth daily [facility] Persistent atrial fibrillation Cardiomyopathy, unspecified type 24 HR metoprolol succinate 100 MG Extend ed Release Oral Tablet metoprolol succinate (TOPROL-XL) 100 MG 24 hr tablet metoprolol succinate (TOPROL-XL) 100 MG 24 hr tablet 05/31/2020 12:00:00 AM EDT 100 mg Oral active Cardiomyopathy, unspecified typePersistent atrial fibrillation Take 1 tablet (100 mg total) by mouth 2 (two) times a day [facility] Cardiomyopathy, unspecified type Persistent atrial fibrillation Furosemide 20 MG Oral Tablet furosemide (LASIX) 20 MG tablet furosemide (LASIX) 20 MG tablet 05/31/2020 12:00:00 AM EDT 20 mg Oral active Persistent atrial fibrillationCardiomyopathy, unspecified type Ta ke 1 tablet (20 mg total) by mouth daily [facility] Persistent atrial fibrillation Cardiomyopathy, unspecified type apixaban 5 MG Oral Tablet [Eliquis] ELIQUIS 5 MG TABS tablet ELIQUIS 5 MG TABS tablet 05/31/2020 12:00:00 AM EDT 5 mg Oral activ e Persistent atrial fibrillationCardiomyopathy, unspecified type Take 1 ta blet (5 mg total) by mouth 2 (two) times a day [facility] Persistent atrial fibrillation Cardiomyopathy, unspecified type Lisinopril 2.5 MG Oral Tablet lisinopril (PRINIVIL,ZES TRIL) 2.5 MG tablet lisinopril (PRINIVIL,ZESTRIL) 2.5 MG tablet 04/30/2020 12:00:00 AM EDT 2.5 mg Oral active Hypertension, un specified typePersistent atrial fibrillationCardiomyopathy, unspecified type Take 1 ta blet (2.5 mg total) by mouth daily [facility] Hypertension, unspecified type Persistent atrial fibrillation Cardiomyopathy, unspecified type Insurance Providers Payer name Policy type / Coverage type Policy ID Covered green party ID Covered green party's relationship to omer Policy Omer Plan Information [facility] [id number] [facility] [id number] [facility] [place] [id number] [facility] [id number] [id number] [facility] [id number] [id number] [facility] (HMO) [id number] Family Dependent [id number] LYNNETTE UNAVAILABLE UNAVAILA BLE [employer]/P [id number] Problems, Conditions, and Diagnoses Code Display Name Description Problem Type Effective Dates Data Source(s) E78.5 Hyperlipidemia, unspecified Hyperlipidemia, unspecifie d Diagnosis 04/30/2020 03:06:48 PM EDT [facility] M10.9 Gout, unspecified Gout, unspecified Diagnosis 04/30/2020 03:06:48 PM EDT [facility] I10 Essential (primary) hypertension Essential (primary) h ypertension Diagnosis 04/30/2020 03:06:48 PM EDT [facility] I48.19 Other persistent atrial fibrillation Oth er persistent atrial fibrillation Diagnosis 04/30/2020 03:06:48 PM EDT [facility] I42.9 Cardiomyopathy, unspecified Cardiomyopathy, unspecifie d Diagnosis 04/30/2020 03:06:48 PM EDT [facility] Results ID Date Data Source [id number] 11/13/2020 03:38:55 PM EST [facility] Name Value Range Interpretation Code Description Data Radha rce(s) Supporting Document(s) &PDF [facility] UFQXHh5jCyINUjAm76/GSNpyXJSxl0XtKQgaFFo0VOduKLGcU2BpqNcqSE8NJGQWYYdQMQUFETqRDI8b oRX [file] 7dQARVXYMCOCOOENJWAYBAgmBDo8ZJ6vQmrXHFWoaz afoH4M2nnCaKAbzbI+D6akL3orhanfHr/qw0AJtS+unEWChHYT8kywdfC+j1c61Byv5VgLxWGsKQVJru m0ykA6TzrJw5CgMnnzKRoaOn5WeE4GIsgRZym2q3dOYvpdy8tCmcPQ68AKeUcwXKrJ47O/WP9V/D8DZX DQdJzxxc9g/PFqVZbPr9TfvukNNGWFFDPQJJZFJWWY FXMALRIEGGUWZDZGQEMXZLEYWAOJVGLXDFtZ4ILDFQ6hdtERVARzY1Cv29r8cvCeGwt0A8UX70EumXHM EEuJSFOJ1ipqOFlFY7FDb/V6/P0B6EGo78/Dt/xx1Z2zkg0pzZ95x/fik7e9nL5TPBVQnEaHbRv74Rxj kIV+B3GrKxAwdxnaUtukLse8pLXcbzQPccTly/33m7 jissTdMghO9+XnR3I+prPcDfNi/9L+7wnJJA/Bv7+social and human services assistant/t+iQW29plmfrklGZAWO7njon+GShMuy8QeEd [file] Story Analyst/9TgrabHNiCoAaBqkBQWeMkxyALm20P3BsBrDzl4UrusnPQROYRcPdSDo9s7uC8KMfl13T6WZl61n [file] dqSYXu2HDd+tU69amprw1Wb1T2ljysqsph4UIctg8oC9k6/Jz/manager inpatient+WNcIRBxGW4f9kUn1RIticcRcBB1 [file] AgICAgICAgICAgICAgICAgICAgICAgICAgICAgICAgICAgICAgICAgICAgICAgICAgICAgICAgICAgIC AgICAgICAgICAgICAgICAgICAgICAgICANCiAgICAgICAgICAgICAgICAgICAgICAgICAgICAgICAgIC AgICAgICAgICAgICAgICAgICAgICAgICAgICAgICAg ICAgICAgICAgICAgICAgICAgICAgICAgICAgICAgICAgICANCiAgICAgICAgICAgICAgICAgICAgICAg ICAgICAgICAgICAgICAgICAgICAgICAgICAgICAgICAgICAgICAgICAgICAgICAgICAgICAgICAgICAg ICAgICAgICAgICAgICAgICANCiAgICAgICAgICAgIC AgICAgICAgICAgICAgICAgICAgICAgICAgICAgICAgICAgICAgICAgICAgICAgICAgICAgICAgICAgIC AgICAgICAgICAgICAgICAgICAgICAgICAgICANCiAgICAgICAgICAgICAgICAgICAgICAgICAgICAgIC AgICAgICAgICAgICAgICAgICAgICAgICAgICAgICAg ICAgICAgICAgICAgICAgICAgICAgICAgICAgICAgICAgICAgICANCiAgICAgICAgICAgICAgICAgICAg ICAgICAgICAgICAgICAgICAgICAgICAgICAgICAgICAgICAgICAgICAgICAgICAgICAgICAgICAgICAg ICAgICAgICAgICAgICAgICAgICANCiAgICAgICAgIC AgICAgICAgICAgICAgICAgICAgICAgICAgICAgICAgICAgICAgICAgICAgICAgICAgICAgICAgICAgIC AgICAgICAgICAgICAgICAgICAgICAgICAgICAgICANCiAgICAgICAgICAgICAgICAgICAgICAgICAgIC AgICAgICAgICAgICAgICAgICAgICAgICAgICAgICAg ICAgICAgICAgICAgICAgICAgICAgICAgICAgICAgICAgICAgICAgICANCiAgICAgICAgICAgICAgICAg ICAgICAgICAgICAgICAgICAgICAgICAgICAgICAgICAgICAgICAgICAgICAgICAgICAgICAgICAgICAg ICAgICAgICAgICAgICAgICAgICAgICANCiAgICAgIC AgICAgICAgICAgICAgICAgICAgICAgICAgICAgICAgICAgICAgICAgICAgICAgICAgICAgICAgICAgIC AgICAgICAgICAgICAgICAgICAgICAgICAgICAgICAgICANCjw/dYMkU4hqmJBuvtR5Y0lgNi5TLm7XXW 1nm6XhVTTfUIonbyAvQsdRLoAnDQMmNeqVJfi8TQlb KW8FiSImH9HpC5XbWToyAT5JEUMpGEUfiYKqYYAhQJItFpQ8SBYqTHwhOC6ChLDmMXooZIPcZTSlJoHd BTEnRK6DDJKhH717zmLzXl0WCm4RCyYeKU8dnh6OGKBuZLKfYytUGmg0FLusOH6BbABbB6NogXFyp1sG OeSiI4IXHIR6AKHwTd7TGQYcXeYiYIVaRQjeKS2gAE AzOICTkLynshQ2MH8ZFM1fmeDcNQ7MZfGiEv5sOo9IKsTzE6YrF2KfLXHpDHRAXPoxJB6LSDTeEWI5HC HsLMGcYSCLJiXfH44mSN3ZQ3Xpf89dTaR7MXFhRfXpKIpzKV60aLeqfcMvzVWqaNzkWH0WIu7+DQplbm RvYmoNCnhyZWYNCjAgNDENCjAwMDAwMDAwMDAgNjU1 XuKjYn2IEXShAHQpQYHlQyHzRJDiWSCjOFasKHMzOKblJXZeEZEwGDNbDR3PHuXbOJYhSfC0FnLwGTMr UUQlcu9DSBHjVBHcJLZ0PIEmMCJwWNNuVLqmSPTzZJJeZNSkKLAxOPLxHL9LOiNsGPRbBAU4GhdvKBKh IVMrcg1CLSWfTCUhTiA7KIJoQTRwLRRgPOpaTOAzBR N7MSCeOXZrZOHxUM3RVgYrSQWhOCo7VCCvYHSjUJXtlu1MUKEoTHZkAyOhHxNqPHTtNGXiKRigDAFbFU P7Vxo9NLYcGYVjND3RYpRbGVMuTQg1ULsxUXJuIVQbbj9PJKZlGOZoAZc4CYOuYSXwVCCnXLtkJRKhLC Q9NYL1AYLpZMFrMY5EUdQjNFMbMYK5LCYvWZNeHARi rq5NHMXfHPEkKAWoRWPvGDLqXWVaAWnqUTNnLJT9WDTuPBEbEVLcOU0REjTyDFVzHYS7LrPgBUEqHHIm bq2KJLIfERGgNDayPOIpLULpGFKoWUzgUHUtFKA1WHYuXKGdONSnRL6YMzZbDYRgMQQqDcFmDYUoLFUd wt8EFXOgKGThZqRsORExWRQkPONaCEnrUELzHNTqRG xyDXThOVZlUA0OQcKvTZDqDfG3EAFpVTWrUZLivc2JGTOaUYOgTeU9KbCoXYGgOHVzUYfuMZIhVKN4KE toLCVhLVIyUM0BZwMvXYTfNrE3LkIwCUEoDLMyqp8PIEBoDNGlLKm5KTHgJXVwWHXaQMnoGIVjXPZ0Uo O5XLNqJIAjUY1TWuOmWPWhGFW6JwYgWHQmKZNweh0D ZIYpGJB4LXovOxVcYLCeLQFoYXguTFGrLHT8OngcUOIsQYWiSF8DIkVzRNSzSAX5MMJsUTRnFOUwth6E NBIqUEA0FhT0GnJeIQDpLZNxSKgpEPRmTHBkUBz9QOMkKXYsYF8CNnRxEHMoFcGeVuZzAWZkBKEqon2D TJIsBKH0YHfxUrYlZCErZGOiDChtPRHaNZzdYOf1CJ DaFTFkGU3SQzDbXPAjIzUrNYTlRPIhWNNmba9PDBCnHDC1ZHQgNCJrEETsHTBdQUn2jkNveCJgJNb4HP 8SG3PxjjOkNDXEEf7Ug795TEWgMBGnPl0DK4anJo3nWSYxYQEGMs1MELh4PoKiUYzjDLRiIuE5G3K0SX ilQBAdP3B0KwSlQVH4MOS+ANb2VUCgWXRaTKC0ZWXe QPqzVQJ3GKLkXncrPKCtHTx9Cx9kOVHDOe3+XIaxoXHdsWhbJOEYDga1EPD1HGceKEFUTz3F ID Date Data Source [id number] 05/05/2020 10:14:08 PM EDT [facility] Name Value Range Interpretation Code Description Data Radha rce(s) Supporting Document(s) CHOLESTEROL @ 197 mg/dL (0-200) [facility] TRIGLYCERIDE @ 69 mg/dL (30-200) [facility] HDL CHOLESTEROL @ 54 mg/dL (>40) [facility] PER NCEP ATP III GUIDELINES:RESULTS LOWE R THAN 40 MG/DL ARE SUGGESTIVEOF INCREASED RISK FOR CORONARY ARTERYDISEASE. RESULTS > OR = TO 60 MG/DL ARECONSIDERED A NEGATIVE RISK FACTOR. CHOL/HDL RATIO 3.6 RATIO [facility] INTERPRETATION OF CHOL-HDL RATIO CHD RISK FEMALE MALEVERY HIGH >8.3 >14.3HIGH 5.6- 8.3 6.7- 14.3AVERAGE 3.7- 5.6 4.0- 6.7BELOW AVERAGE 2.5- 3.7 2.7- 4.0PROTECTED <2.5 <2.7 LDL CHOL (CALC) 129 mg/dL (<130) [facility] PER NCEP ATP III GUIDELINES: OPTIMAL < 100 NEAR OPTIMAL 100 - 129BORDERLINE HIGH 130 - 159 HIGH 160 - 189 VERY HIGH > 189 ID Date Data Source [id number] 05/05/2020 10:14:08 PM EDT [facility] Name Value Range Interpretation Code Description Data Radha rce(s) Supporting Document(s) DIGOXIN 0.5 ng/mL (0.8-2.0) L [facility] ID Date Data Source [id number] 05/05/2020 10:14:08 PM EDT [facility] Name Value Range Interpretation Code Description Data Radha rce(s) Supporting Document(s) SODIUM 138 mmol/L (136-145) [facility] POTASSIUM 5.0 mmol/L (3.6-5.2) [facility] CHLORIDE 105 mmol/L (100-108) [facility] CO2 30 mmol/L (22-31) [facility] ANION GAP 3 mmol/L (7-16) L [facility] UREA NITROGEN 21 mg/dL (7-24) [facility] CREATININE 0.96 mg/dL (0.80-1.30) [facility] BUN/CREAT RATIO 21.9 RATIO (10.0-20.0) H [facility] GLUCOSE 101 mg/dL (70-99) H [facility] CALCIUM 9.2 mg/dL (8.4-10.2) [facility] TOTAL PROTEIN 6.8 g/dL (6.4-8.2) [facility] ALBUMIN 4.1 g/dL (3.2-4.5) [facility] GLOBULIN 2.7 g/dL (2.7-4.3) [facility] ALB/GLOB RATIO 1.5 RATIO [facility] ALKALINE PHOSPHATASE 95 U/L (45-117) [facility] BILIRUBIN,TOTAL 0.8 mg/dL (0.0-1.0) [facility] PLEASE NOTE:Total bilirubin results may be falselyelevated in patients taking Eltrombopag. AST (SGOT) 19 U/L (11-39) [facility] ALT (SGPT) 30 U/L (12-78) [facility] GFR >60 ml/min/1.73m2 (>59) [facility] GFR ( AMER) >60 ml/min/1.73m2 (>59) [facility] GFR INTERPRETATION [facility] --NORMAL KIDNEY FUNCTION OR MILD DISEASE - GFR >OR= 60CHRONIC KIDNEY DISEASE - GFR 15 - 59RENAL FAILURE - GFR <15 Est. GFR calculation based on the MDRDstudy equation, which assumes a steadystate for creatinine. Est. GFR should notbe used for medication dosing. ID Date Data Source [id number] 05/05/2020 09:18:07 PM EDT [facility] [place] Name Value Range Interpretation Code Description Data Radha rce(s) Supporting Document(s) WBC 5.5 10*3/uL (4.1-11.0) [facility] [place] RBC 4.57 10*6/uL (4.60-6.10) L [facility] HGB 14.4 g/dL (13.5-18.0) [facility] HCT 42.6 % (41.0-53.0) [facility] MCV 93.3 fL (80.0-95.0) [facility] MCH 31.5 pg (27.0-32.0) [facility] MCHC 33.8 g/dL (32.0-36.0) [facility] RDW 13.4 % (10.5-14.5) [facility] PLT 141 10*3/uL (150-450) L [facility] MPV 11.0 fL (7.1-10.7) H [facility] Procedure Social History Code Duration Value Status Description Data Source(s ) Alcohol intake 04/30/2020 12:00:00 AM EDT Yes completed [facility] Smoking 04/30/2020 12:00:00 AM EDT Never smoker completed Never s moker [facility] Vital Signs ID Date Data Source UNK Name Value Range Interpretation Code Description Data Source(s) Oxygen saturation in Arterial blood by Pulse oximetry 96 % 96 % [facility] Body mass index (BMI) [Ratio] 28.48 kg/m2 28.48 kg/m2 [facility] Body weight 95.255 kg 95.255 kg [facility] Body height 182.9 cm 182.9 cm [facility] Heart rate 86 /min 86 /min [facility] Diastolic blood pressure 70 mm[Hg] 70 mm[Hg] [facility] Systolic blood pressure 112 mm[Hg] 112 mm[Hg] [facility] Patient Treatment Plan of Care Planned Activity Planned Date Details Description Data Source (s) 24 HR metoprolol succinate 100 MG Extended Release Ora l Tablet 05/31/2020 12:00:00 AM EDT [facility] Furosemide 20 MG Oral Tablet 05/31/2020 12:00:00 AM EDT [facility] apixaban 5 MG Oral Tablet [Eliquis] 05/31/2020 12:00:00 AM EDT [facility] Digoxin 0.125 MG Oral Tablet 05/31/2020 12:00:00 AM EDT [facility] Lisinopril 2.5 MG Oral Tablet 04/30/2020 12:00:00 AM EDT [facility]
[2020-11-24 18:24] LABS: BASO # 0.1 10^3/uL (0.0-0.2); BASO % 0.6 % (0.0-1.0); EOS # 0.2 10^3/uL (0.0-0.5); EOS % 2.5 % (0.0-3.0); HEMATOCRIT 41.9 % (42.0-52.0); LYMPH # 1.8 10^3/uL (1.5-5.0); MEAN CORPUSCULAR HEMOGLOBIN 30.7 pg (27.0-33.0); MEAN CORPUSCULAR HGB CONC 33.4 g/dl (32.0-36.5); MEAN CORPUSCULAR VOLUME 91.9 fl (80.0-96.0); MONO # 0.7 10^3/uL (0.0-0.8); MONO % 7.3 % (0.0-5.0); NEUTROPHILS # 6.2 10^3/uL (1.5-8.5); NEUTROPHILS % 69.2 % (36.0-66.0); PLATELET COUNT, AUTOMATED 165 10^3/uL (150-450); RED BLOOD COUNT 4.56 10^6/uL (4.30-6.10)
[2020-11-24 18:36] LABS: INR 0.98; PARTIAL THROMBOPLASTIN TIME 35.5 SECONDS (24.2-38.5); PROTHROMBIN TIME 13.2 SECONDS (12.5-14.3)
[2020-11-24 19:46] VITALS: BP 123/74
== END 2020-11-24 19:47 | disposition short-term general hospital (02) ==
LOC: M ED 16:39
DX: S68.122A Partial traumatic metacarpophalangeal amputation of right middle finger, initial encounter (principal); S61.200A Unspecified open wound of right index finger without damage to nail, initial encounter; W31.2XXA Contact with powered woodworking and forming machines, initial encounter; Y92.099 Unspecified place in other non-institutional residence as the place of occurrence of the external cause; Y93.9 Activity, unspecified; Y99.9 Unspecified external cause status; I48.91 Unspecified atrial fibrillation; I50.9 Heart failure, unspecified; M54.9 Dorsalgia, unspecified; Z86.718 Personal history of other venous thrombosis and embolism; Z79.01 Long term (current) use of anticoagulants; Z79.899 Other long term (current) drug therapy